=== PATIENT | female | born 1990 | race Caucasian/White ===

== ENCOUNTER → 2017-09-05 11:03 | Observation (INO) ==
[2017-09-05 08:52] LABS: Basophils # 0.1 K/mcL (0.0-0.2); Basophils % 0.6 %; Eosinophils # 0.1 K/mcL (0.0-0.6); Hematocrit 36.2 % (35.3-44.9); Hemoglobin 12.2 g/dL (11.5-15.4); Immature Granulocytes % 0.4 % (0-4); Lymphocytes # 1.4 K/mcL (0.6-4.6); Lymphocytes % 12.4 %; Mean Corpuscular HGB Conc 33.7 g/dL (31.6-35.5); Mean Platelet Volume 10.6 fL (9.4-12.4); Monocytes # 0.8 K/mcL (0.0-1.3); Monocytes % 7.4 %; Neutrophils # 8.5 K/mcL (1.6-8.9); Platelet Count 331 K/mcL (140-400); Red Blood Count 4.36 M/mcL (3.82-4.97); Red Cell Distribution Width 13.8 % (11.5-14.5); Segmented Neutrophils % 78.2 %
[2017-09-05 08:54] LABS: Bilirubin,Urine Negative (Negative); Blood,Urine Negative (Negative); Clarity,Urine Cloudy (Clear); Color,Urine Yellow (Yellow); Glucose,Urine (UA) Normal (Normal); Ketones,Urine Trace mg/dL (Negative); Leukocyte Esterase,Urine Negative (Negative); Nitrite,Urine Negative (Negative); PH,Urine 6.5 pH Units (5.0-8.0); Protein,Urine >=300 mg/dL (Neg-Trace); Specific Gravity,Urine 1.026 (1.010-1.025); Urobilinogen,Urine Normal (Normal)
[2017-09-05 08:56] LABS: Bacteria,Urine Few per hpf (None-Few); Hyaline Casts,Urine Few per lpf (None-Few); Squamous Epithelial Cell,Urine Many per lpf (None-Few); WBC,Urine 15-30 per hpf (0-3)
[2017-09-05 09:26] LABS: Alanine Aminotransferase 13 Units/L (7-52); Aspartate Amino Transferase 27 Units/L (13-39); BUN/Creatinine Ratio 14 (6-26); Blood Urea Nitrogen 7 mg/dL (6-20); Lactate Dehydrogenase 141 Units/L (140-271); Uric Acid 4.4 mg/dL (2.3-7.6); eGFR For African Americans > 60 (> 60); eGFR For Non-African Americans > 60 (> 60)
--- NOTE | 2017-09-05 09:40 | OB/GYN History & Physical ---
Date of Encounter: 09/05/17 Time of Encounter: 09:37 History of Present Illness HPI: Ms. Santoro is a 27 year old female Past Med Surg Social Fam HX - Past Medical History Medical history: diabetes, hypertension, myocardial infarction Psychiatric history: anxiety, depression, other - Social History Smoking Status: Never smoker Smokeless Tobacco Status: No Alcohol use: none Drug use: none - Family History Mother Living Status: Still Living Hx Family Cardiac Disorders: No Hx Family Respiratory Disorders: No Hx Family Cancer: No Hx Family GI Disorders: No Hx Family Genitourinary Disorders: No Hx Family Endocrine Disorder: No Hx Family Musculoskeletal Disorders: No Hx Family Neuromuscular Disorders: No Hx Family Neurologic Disorders: No Hx Family HEENT Disorders: No Hx Family Autoimmune Disorders: No Hx Family Reproductive Disorders: No Hx Family Psychosocial Disorders: No Hx Family Medical Disorders: No Obstetrical History - Pregnancies : 3 Medications and Allergies Acetaminophen [Tylenol] 500 mg PO Q6HR PRN #20 tablet 04/27/17 [Rx] Doxylamine/Pyridoxine HCl [Jorge Shi 10-10 mg Tablet] 1 each PO BID PRN #20 tablet.dr 06/09/17 [Rx] NIFEdipine XL (24 HR) [Procardia XL] 120 mg PO DAILY #30 tablet.er 06/21/17 [Rx] Aspirin 81 mg PO DAILY 09/05/17 [History] Insulin LISPRO [Humalog] 12 units SQ TID 09/05/17 [History] Insulin NPH Human Isophane [Humulin N Kwikpen] 40 units SQ BID 09/05/17 [History ] Metoprolol ER-Hctz 100-12.5 mg 100 mg PO DAILY 09/05/17 [History] 3 Allergy/AdvReac Type Severity Reaction Status Date / Time No Known Allergies Allergy Verified 09/05/17 08:26 Results Result Diagrams: 09/05/17 08:30 09/05/17 08:30 Abnormal lab results Creatinine 0.50 mg/dL (0.60-1.20) L 09/05/17 08:30 Urine Clarity Cloudy (Clear) A 09/05/17 08:30 Ur Specific [place] 1.026 (1.010-1.025) H 09/05/17 08:30 Urine Protein >=300 mg/dL (Neg-Trace) H 09/05/17 08:30 Urine Ketones Trace mg/dL (Negative) H 09/05/17 08:30 Urine Microscopic RBC 3-5 per hpf (0-3) H 09/05/17 08:30 Urine Microscopic WBC 15-30 per hpf (0-3) H 09/05/17 08:30 Ur Squamous Epith Cells Many per lpf (None-Few) H 09/05/17 08:30 All other labs normal. - VTE Reasons for not Prescribing Prophylaxis: Treatment not Indicated - Low risk for VTE
[2017-09-05 09:51] LABS: Amphetamine Screen,Urine Negative ng/mL (Cutoff=1000); Barbiturate Screen,Urine Negative ng/mL (Cutoff=200); Benzodiazepines Screen,Urine Negative ng/mL (Cutoff=200); Cannabinoid Screen,Urine Positive ng/mL (Cutoff = 50); Cocaine Screen,Urine Negative ng/mL (Cutoff= 300); Opiate Screen,Urine Negative ng/mL (Cutoff=300); Phencyclidine Screen,Urine Negative ng/mL (Cutoff=25)
--- NOTE | 2017-09-05 09:56 | OB/GYN History & Physical ---
Date of Encounter: 09/05/17 Time of Encounter: 09:51 Assessment and Plan (1) 28 weeks gestation of Current visit: Yes Status: Acute (2) Chronic hypertension affecting Current visit: Yes Status: Acute (3) Pre-eclampsia superimposed on chronic hypertension Current visit: Yes Status: Acute BP initially severe range in triage. Labetalol 20 IV has improved BP to mild range. PIH labs WNL except urine protein >300. UPCR pending. Pt did not take her home meds this am so we administered procardia and metoprolol here. ASA 81 mg per home regimen. Magnesium sulfate 4 gram load given. Magnesium sulfate 2 grams per hour following bolus. Celestone given in anticipation of delivery. Transfer to [facility] via ambulance. (4) IDDM (insulin dependent diabetes mellitus) Current visit: Yes Status: Acute Accucheck 203. Covered with 4 units. (5) History of GA (myocardial infarction) Current visit: Yes Status: Acute troponin negative (6) Marijuana use Current visit: Yes Status: Acute History of Present Illness Chief complaint: HTN HPI: Ms. Santoro is a 27 year old female presenting at 28w1d with c/o headache, visual changes, vomiting, and elevated blood pressure this am. This is complicated by CHTN, IDDM, and history of GA with subsequent stent placement in 2012. She reports she is on Procardia 120xl and metoprolol 100mg daily for her blood pressure. She usually takes in the morning around 8 but hasn't taken it this am due to vomiting. Her blood pressure has been elevated since she took it at 0400 this am at home. She also c/o shortness of breath with ambulation this am. She denies chest pain, contractions, leaking or bleeding. Good FM. Past Med Surg Social Fam HX - Past Medical History Medical history: diabetes, hypertension, myocardial infarction Psychiatric history: anxiety, depression, other - Social History Smoking Status: Never smoker Smokeless Tobacco Status: No Alcohol use: none Drug use: none - Family History Mother Living Status: Still Living Hx Family Cardiac Disorders: No Hx Family Respiratory Disorders: No Hx Family Cancer: No Hx Family GI Disorders: No Hx Family Genitourinary Disorders: No Hx Family Endocrine Disorder: No Hx Family Musculoskeletal Disorders: No Hx Family Neuromuscular Disorders: No Hx Family Neurologic Disorders: No Hx Family HEENT Disorders: No Hx Family Autoimmune Disorders: No Hx Family Reproductive Disorders: No Hx Family Psychosocial Disorders: No Hx Family Medical Disorders: No Obstetrical History - Pregnancies : 3 Para: 1 Term: 0 : 1 Ab's: 1 Livin - History/Complications History/Complications: First : twins at 30 weeks due to IUGR Second SAB at 16 weeks Medications and Allergies Acetaminophen [Tylenol] 500 mg PO Q6HR PRN #20 tablet 04/27/17 [Rx] Doxylamine/Pyridoxine HCl [Dicgerrys Dr 10-10 mg Tablet] 1 each PO BID PRN #20 tablet.dr 06/09/17 [Rx] NIFEdipine XL (24 HR) [Procardia XL] 120 mg PO DAILY #30 tablet.er 06/21/17 [Rx] Aspirin 81 mg PO DAILY 09/05/17 [History] Insulin LISPRO [Humalog] 12 units SQ TID 09/05/17 [History] Insulin NPH Human Isophane [Humulin N Kwikpen] 40 units SQ BID 09/05/17 [History ] Metoprolol ER-Hctz 100-12.5 mg 100 mg PO DAILY 09/05/17 [History] 3 Allergy/AdvReac Type Severity Reaction Status Date / Time No Known Allergies Allergy Verified 09/05/17 08:26 Review of System OB - Constitutional Constitutional ROS IM: headache(s), no fever(s) - Eyes Eyes: bilateral: blurred vision ("seeing spots") - Cardiovascular Cardiovascular: dyspnea on exertion, no chest pain, no diaphoresis, no dyspnea Exam - Constitutional Constitutional: well developed, well nourished, no acute distress, obese - HEENT HEENT: Mucus Membranes Moist - Lungs Respiratory exam: CTAB - Cardiovascular Cardiovascular exam: RRR - Abdomen Abdomen: Present: gravid, non tender - Extremities Extremities exam: pedal edema (mild bilaterally) Deep Tendon Reflex Grade: 2+ Normal Results Result Diagrams: 09/05/17 08:30 09/05/17 08:30 Abnormal lab results Creatinine 0.50 mg/dL (0.60-1.20) L 09/05/17 08:30 Urine Clarity Cloudy (Clear) A 09/05/17 08:30 Ur Specific [place] 1.026 (1.010-1.025) H 09/05/17 08:30 Urine Protein >=300 mg/dL (Neg-Trace) H 09/05/17 08:30 Urine Ketones Trace mg/dL (Negative) H 09/05/17 08:30 Urine Microscopic RBC 3-5 per hpf (0-3) H 09/05/17 08:30 Urine Microscopic WBC 15-30 per hpf (0-3) H 09/05/17 08:30 Ur Squamous Epith Cells Many per lpf (None-Few) H 09/05/17 08:30 U Marijuana (THC) Screen Positive ng/mL (Cutoff = 50) H 09/05/17 08:30 All other labs normal. - VTE Reasons for not Prescribing Prophylaxis: Treatment not Indicated - Low risk for VTE
[2017-09-05 10:04] LABS: Troponin I < 0.03 ng/mL (< 0.04)
[~2017-09-05 11:03] MED LIST: *HR* Labetalol 20 MG/4 ML SYRINGE IVP ONE; Acetaminophen 325 MG TABLET PO ONE; Aspirin Enteric Coated 81 MG Tablet PO SCH; Betamethasone Acet/SodPhos 6 MG/ML MDV IM SCH; Insulin LISPRO 300 UNITS/3 ML VIAL SQ ONE; Insulin Regular, Human 100 UNIT/ML SQ ONE; Magnesium Sulfate 20 gm/500mL 20 GM/500 ML IV.SOLN IVC SCH; Metoprolol XL (24 HR) Succ 50 MG TAB.ER.24H PO SCH; NIFEdipine XL (24 HR) 60 MG TAB.ER.24 PO SCH; Ringers Solution, Lactated 1,000 ML IVC SCH; Ringers Solution, Lactated 1,000 ML ONE
[2017-09-05 14:33] LABS: Protein/Creatinine Ratio,Urine 3.34 mg/mg (0.00-0.20)
== END | disposition short-term general hospital (02) ==
LOC: 1NENULAB
PROVIDERS: ADMIT Obstetrics & Gynecology; ATTEND Obstetrics & Gynecology

== ENCOUNTER 2018-03-18 20:38 | Inpatient (IN) ==
[2018-03-18] MEDS ORDERED: Ketorolac 15 MG/ML VIAL IVP ONE (20:49)
[2018-03-18] MEDS ORDERED: Metoclopramide 10 MG/2 ML VIAL IVP ONE (21:02)
--- NOTE | 2018-03-18 21:05 | Emergency Department Note ---
Disposition Clinical Impression: Elevated troponin Chest pain Qualifiers: Chest pain type: precordial pain Qualified Code(s): R07.2 - Precordial pain Disposition: Admitted As Inpatient Condition: Good Instructions: Chest Pain (ED) Referrals: NONE,PCP [Primary Care Provider] - Forms: ED Satisfaction Letter Time of Disposition: 22:32 General Adult HPI - General Chief complaint: ED Chest Pain Stated complaint: cp Time Seen by Provider: 03/18/18 20:49 Source: patient, EMS Mode of arrival: EMS Limitations: no limitations - History of Present Illness HPI Narrative: This is a 28-year-old female brought in by EMS because of chest pain that she states is midsternal and pain under her left breast with radiation to the left arm. She reports a history of myocardial infarction at age 22 and 2013 and states she had a stent placed in [facility]. She states episodes of pain have lasted from 1 second a 45 minutes in duration and have had a frequency of greater than 1 per hour for the last 4 days. She was seen here 2 days ago and had a negative ACS workup. Pain Scale: 4 - Related Data Home Medications Medication Instructions Recorded Confirmed Aspirin 81 mg PO DAILY 09/05/17 09/05/17 Insulin LISPRO [Humalog] 12 units SQ TID 09/05/17 09/05/17 Insulin NPH Human Isophane 40 units SQ BID 09/05/17 09/05/17 [Humulin N Kwikpen] Metoprolol ER-Hctz 100-12.5 mg 100 mg PO DAILY 09/05/17 09/05/17 Previous Rx's Medication Instructions Recorded Acetaminophen [Tylenol] 500 mg PO Q6HR PRN #20 tablet 04/27/17 Doxylamine/Pyridoxine HCl 1 each PO BID PRN #20 tablet.dr 06/09/17 [Jorge Shi 10-10 mg Tablet] NIFEdipine XL (24 HR) [Procardia 120 mg PO DAILY #30 tablet.er 06/21/17 XL] Allergies Allergy/AdvReac Type Severity Reaction Status Date / Time No Known Allergies Allergy Verified 03/16/18 09:45 All systems ED: reviewed and negative except as stated. Cardiovascular: Reports: chest pain Respiratory: Reports: dyspnea Past Medical History - Past Medical History Medical history: Reports: coronary artery disease, diabetes, hypertension, myocardial infarction Psychiatric history: Reports: anxiety, depression, other [employer] history: Reports: spontaneous - Social History Smoking Status: Never smoker Smokeless Tobacco Status: No Alcohol use: Reports: none Drug use: Reports: none Physical Exam - General Limitations: no limitations General appearance: alert, in distress (In moderate distress during episodes of pain), obese - Head Head exam: atraumatic, normocephalic, normal inspection - Eye Eye exam: Present: normal appearance, PERRL, EOMI. Absent: scleral icterus - Chest Chest inspection: Present: normal inspection, symmetric chest wall rise - Respiratory Respiratory exam: Present: normal lung sounds bilaterally. Absent: respiratory distress, wheezes, stridor, accessory muscle use - Cardiovascular Cardiovascular exam: Present: regular rate, normal rhythm, normal heart sounds - Abdominal Exam Abdominal exam: Present: soft, Non-Tender. Absent: tenderness, distention, guarding, rebound, rigidity - Extremities Exam Extremities exam: Present: normal inspection, full ROM, pedal edema (Nonpitting bilateral pedal edema). Absent: tenderness - Neurological Exam Neurological exam: Present: alert, oriented X3 - Psychiatric Psychiatric exam: Present: normal affect, normal mood - Skin Skin exam: Present: warm, dry, intact, normal color Course Course Narrative: This is a 28-year-old female with a reported history of coronary disease now with recurrent episodes of chest pain. Vital Signs Temperature 98.3 F 03/18/18 20:40 Pulse Rate 73 03/18/18 20:40 Respiratory Rate 16 03/18/18 20:40 Blood Pressure 182/118 03/18/18 20:40 O2 Sat by Pulse Oximetry 96 03/18/18 20:40 Temperature 98.3 F 03/18/18 20:40 Pulse Rate 95 03/18/18 22:26 Respiratory Rate 16 03/18/18 22:26 Blood Pressure 162/112 03/18/18 22:26 O2 Sat by Pulse Oximetry 97 03/18/18 22:26 Oxygen Delivery Oxygen Delivery Room Air Medical Decision Making - [facility] Narrative Medical decision making narrative: This is a 28-year-old female with chest pain. Chest pain was relieved by nitroglycerin, but her blood pressure remains elevated. Her troponin was very s lightly elevated 0.04. I discussed her case with the on-call hospitalist, who accepted her for admission. I agreed to give her 1 dose of labetalol because of hypertension. - Lab Data Lab results reviewed: Yes I reviewed the patient's lab results. Lab results narrative: CBC shows leukocytosis of 14.2 and thrombocytosis at 451 BMP was unremarkable D-dimer was low. Result diagrams: 03/18/18 20:59 03/18/18 20:59 Lab Results 03/18/18 03/18/18 03/18/18 Range/Units 20:49 20:59 20:59 WBC 14.2 H (4.3-11.1) K/mcL RBC 4.68 (3.82-4.97) M/mcL Hgb 13.0 (11.5-15.4) g/dL Hct 38.5 (35.3-44.9) % MCV 82.3 L (83.0-100.0) fL MCH 27.8 L (28.0-33.3) pg MCHC 33.8 (31.6-35.5) g/dL RDW 13.7 (11.5-14.5) % Plt Count 451 H (140-400) K/mcL MPV 9.9 (9.4-12.4) fL Immature Gran % 0.4 (0-4) % Seg Neutrophils % 60.8 % Lymphocytes % 27.4 % Monocytes % 6.5 % Eosinophils % 4.3 % Basophils % 0.6 % Neutrophils # 8.6 (1.6-8.9) K/mcL Lymphocytes # 3.9 (0.6-4.6) K/mcL Monocytes # 0.9 (0.0-1.3) K/mcL Eosinophils # 0.6 (0.0-0.6) K/mcL Basophils # 0.1 (0.0-0.2) K/mcL D-Dimer 309 (0-500) ng/mLFEU Sodium 134 L (136-145) mEq/L Potassium 4.3 (3.5-5.1) mEq/L Chloride 99 (98-107) mEq/L Carbon Dioxide 23 (23-29) mEq/L BUN 15 (6-20) mg/dL Creatinine 0.68 (0.60-1.20) mg/dL Est GFR ( Amer) > 60 (> 60) Est GFR (Non-Af Amer) > 60 (> 60) BUN/Creatinine Ratio 22 (6-26) Glucose 255 H (70-105) mg/dL Calculated Osmolality 288 (280-300) Calcium 9.3 (8.6-10.3) mg/dL Troponin I 0.04 H* (< 0.04) ng/mL - Radiology Data Radiology results reviewed: Yes I reviewed the patient's radiology results. Chest x-ray showed no acute process - EKG Data EKG #1 EKG attestation: Yes I reviewed and interpreted this EKG. EKG results narrative: ECG shows sinus rhythm, 71 bpm, slight ST depressions in leads 3 and aVF, normal T waves, normal intervals, normal axis Critical Care Time Critical Care Time: Yes Total Critical Care Time: 20 Attestation: 20 minutes of critical care time was invested independent of other separately billable procedures
[2018-03-18] MEDS ORDERED: Nitroglycerin 0.4 MG TAB.SUBL SL ONE (21:06)
[2018-03-18] MEDS: Nitroglycerin 0.4 MG TAB.SUBL SL PRN ×2 (21:08→22:22)
[2018-03-18 21:28] LABS: Basophils # 0.1 K/mcL (0.0-0.2); Basophils % 0.6 %; Eosinophils # 0.6 K/mcL (0.0-0.6); Eosinophils % 4.3 %; Hematocrit 38.5 % (35.3-44.9); Immature Granulocytes % 0.4 % (0-4); Lymphocytes # 3.9 K/mcL (0.6-4.6); Lymphocytes % 27.4 %; Mean Corpuscular HGB Conc 33.8 g/dL (31.6-35.5); Mean Corpuscular Hemoglobin 27.8 pg (28.0-33.3); Mean Corpuscular Volume 82.3 fL (83.0-100.0); Mean Platelet Volume 9.9 fL (9.4-12.4); Monocytes # 0.9 K/mcL (0.0-1.3); Monocytes % 6.5 %; Neutrophils # 8.6 K/mcL (1.6-8.9); Platelet Count 451 K/mcL (140-400); Red Blood Count 4.68 M/mcL (3.82-4.97); Red Cell Distribution Width 13.7 % (11.5-14.5); Segmented Neutrophils % 60.8 %
[2018-03-18 21:47] LABS: BUN/Creatinine Ratio 22 (6-26); Blood Urea Nitrogen 15 mg/dL (6-20); Calcium 9.3 mg/dL (8.6-10.3); Carbon Dioxide 23 mEq/L (23-29); Chloride 99 mEq/L (98-107); Glucose 255 mg/dL (70-105); Osmolality,Calculated 288 (280-300); Potassium 4.3 mEq/L (3.5-5.1); Sodium 134 mEq/L (136-145); eGFR For Non-African Americans > 60 (> 60)
[2018-03-18 22:06] LABS: Troponin I 0.04 ng/mL (< 0.04)
[2018-03-18] MEDS ORDERED: *HR* FentaNYL (PF) 100 MCG/2 ML VIAL IVP ONE (22:11)
[2018-03-18] MEDS ORDERED: NIFEdipine 10 MG CAPSULE PO ONE (22:29)
[2018-03-18] MEDS ORDERED: *HR* Labetalol 20 MG/4 ML SYRINGE IVP ONE (22:30)
[2018-03-18] MEDS ORDERED: Ondansetron 4 MG/2 ML VIAL IVP ONE (23:08)
[2018-03-18] MEDS ORDERED: Ondansetron 4 MG/2 ML VIAL ONE (23:08)
[2018-03-18] MEDS ORDERED: Naloxone 0.4 MG/ML INJ IVP PRN (23:18)
[2018-03-19] MEDS: Nitroglycerin 0.4 MG TAB.SUBL SL PRN (00:22)
[2018-03-19] MEDS: 0.9 % Sodium Chloride 1,000 ML IVC SCH ×2 (00:23→10:16)
[2018-03-19] MEDS: *HR* Heparin 5,000 UNIT/ML VIAL SQ SCH ×2 (00:26→05:05)
[2018-03-19] MEDS ORDERED: *HR* Morphine 2 MG/ML SYRINGE IVP ONE (00:31)
[2018-03-19] MEDS ORDERED: D5% in Water 1,000 ML IVC PRN (01:20)
[2018-03-19] MEDS ORDERED: Dextrose Gel 15 GM/37.5 ML TUBE PO PRN ×2 (01:20)
[2018-03-19] MEDS ORDERED: *HR* Dextrose 50 % in Water (Syg) 50 ML SYRINGE IVP PRN (01:20)
[2018-03-19] MEDS: Insulin LISPRO 300 UNITS/3 ML VIAL SQ SCH ×4 (02:07→21:21)
[2018-03-19 05:05] LABS: Basophils # 0.1 K/mcL (0.0-0.2); Basophils % 0.4 %; Eosinophils # 0.2 K/mcL (0.0-0.6); Eosinophils % 1.6 %; Hematocrit 37.6 % (35.3-44.9); Hemoglobin 12.7 g/dL (11.5-15.4); Immature Granulocytes % 0.5 % (0-4); Lymphocytes # 2.9 K/mcL (0.6-4.6); Lymphocytes % 22.3 %; Mean Corpuscular HGB Conc 33.8 g/dL (31.6-35.5); Mean Corpuscular Hemoglobin 27.5 pg (28.0-33.3); Mean Corpuscular Volume 81.4 fL (83.0-100.0); Mean Platelet Volume 9.4 fL (9.4-12.4); Monocytes # 0.5 K/mcL (0.0-1.3); Monocytes % 4.1 %; Neutrophils # 9.3 K/mcL (1.6-8.9); Platelet Count 395 K/mcL (140-400); Red Blood Count 4.62 M/mcL (3.82-4.97); Red Cell Distribution Width 13.5 % (11.5-14.5); Segmented Neutrophils % 71.1 %
[2018-03-19 05:24] LABS: Alanine Aminotransferase 14 Units/L (7-52); Albumin 3.9 g/dL (3.5-5.7); Alkaline Phosphatase 68 Units/L (34-104); Aspartate Amino Transferase 12 Units/L (13-39); BUN/Creatinine Ratio 22 (6-26); Bilirubin,Total 0.3 mg/dL (0.3-1.0); Blood Urea Nitrogen 13 mg/dL (6-20); Calcium 9.1 mg/dL (8.6-10.3); Carbon Dioxide 24 mEq/L (23-29); Chloride 100 mEq/L (98-107); Glucose 298 mg/dL (70-105); Magnesium 1.6 mg/dL (1.6-2.6); Osmolality,Calculated 289 (280-300); Potassium 3.9 mEq/L (3.5-5.1); Sodium 134 mEq/L (136-145); Total Protein 6.7 g/dL (6.4-8.9); eGFR For Non-African Americans > 60 (> 60)
[2018-03-19 05:25] LABS: Albumin/Globulin Ratio 1.4 (1.1-2.2); Globulin 2.8 g/dL (2.4-3.5)
[2018-03-19 05:32] LABS: Troponin I 0.27 ng/mL (< 0.04)
[2018-03-19] MEDS ORDERED: *HR* Heparin 5,000 UNIT/ML VIAL IVP ONE (05:58)
[2018-03-19] MEDS ORDERED: *HR* Heparin 5,000 UNIT/ML VIAL IVP PRN ×2 (05:58)
[2018-03-19] MEDS ORDERED: Heparin 25,000 UNIT/500 ML D5W 25,000 UNIT/500 ML BAG IVC SCH ×2 (06:00)
[2018-03-19 06:38] LABS: Heparin anti-factor XA UFH 0.05 IU/mL (0.30-0.70); Prothrombin Time 11.3 Seconds (9.4-12.1)
--- NOTE | 2018-03-19 07:42 | Internal Med History&Physical ---
Date of Encounter: 03/19/18 Time of Encounter: 03:00 Internal Medicine - H&P: HPI Chief complaint: Chest Pain History of present illness: This is a 28-year-old female with a past medical history type 2 diabetes, hypertension, hyperlipidemia and myocardial infarction at age 22 and 2013 status post PCI in [facility] brought in by EMS because of chest pain. Pain described as midsternal , sharp with radiation to the left arm. She states episodes of pain have lasted from 1 second a 45 minutes in duration and have had a frequency of greater than 1 per hour for the last 4 days. Patient presented 2 days ago with similar symptoms and had a negative ACS workup. Initial laboratory workup was notable for a mildly elevated troponin of 0.04. No significant EKG changes were noted when compared to previous EKG. was noted to be hypertensive of 182/118. Patient received sublingual nitroglycerin in the ED with mild improvement in her chest pain. She was given a loading dose of aspirin and admitted for further evaluation. Past Med Surg Social Fam HX - Past Medical History Medical history: coronary artery disease, diabetes, hypertension, myocardial infarction Additional medical history: borderline personality disorder Psychiatric history: anxiety, depression, other - Past Surgical History Additional surgical history: ACL repair 2006. [place] teeth 2005. Carpel tunnel 2008. D&C 2010. tubal - Social History Smoking Status: Never smoker Smokeless Tobacco Status: No Alcohol use: none Drug use: none - Family History Mother Living Status: Still Living Hx Family Cardiac Disorders: No Hx Family Respiratory Disorders: No Hx Family Cancer: No Hx Family GI Disorders: No Hx Family Endocrine Disorder: No Hx Family Neuromuscular Disorders: No Hx Family Neurologic Disorders: No Hx Family HEENT Disorders: No Hx Family Autoimmune Disorders: No Internal Medicine - H&P: Meds Aspirin 81 mg PO DAILY 03/18/18 [History] Atorvastatin [Lipitor] 40 mg PO HS 03/18/18 [History] BuPROPion XL (24 HR) [Wellbutrin XL] 150 mg PO DAILY 03/18/18 [History] Carvedilol [Coreg] 25 mg PO BID 03/18/18 [History] Chlorthalidone 25 mg PO BID 03/18/18 [History] Cyclobenzaprine [Flexeril] 10 mg PO HS PRN 03/18/18 [History] DULoxetine [Cymbalta] 30 mg PO DAILY 03/18/18 [History] Enalapril Maleate [Vasotec] 10 mg PO DAILY 03/18/18 [History] Insulin Degludec [Tresiba Flextouch U-200] 40 unit SQ BID 03/18/18 [History] Metformin HCl 1,000 mg PO DAILY 03/18/18 [History] Allergy/AdvReac Type Severity Reaction Status Date / Time No Known Allergies Allergy Verified 03/16/18 09:45 All Systems PM: A 10-system review of systems was performed and is negative for pertinent findings except as documented above in the HPI. - Constitutional Constitutional: no chills, no fever(s), no night sweats - EENT Eyes: no change in vision, no discharge, no pain, no photophobia Ears: no ear discharge, no ear pain, no tinnitus Nose, mouth and throat: no dysphagia, no nasal discharge, no neck pain, no sore throat - Cardiovascular Cardiovascular ROS IM: no chest pain, no diaphoresis, no dyspnea, no lightheadedness, no palpitations, no syncope - Respiratory Respiratory: no cough, no dyspnea, no wheezing, no excessive phlegm production - Gastrointestinal Gastrointestinal: no abdominal pain, no diarrhea, no hematemesis, no hematochezia, no melena, no nausea, no vomiting - Genitourinary Genitourinary: no change in urinary stream, no dysuria, no flank pain, no hematuria - Musculoskeletal Musculoskeletal ROS IM: no numbness, no tingling - Integumentary Integumentary IM: no rash, no unusual bruising - Neurological Neurological ROS: no confusion, no convulsions, no focal weakness, no numbness, no tingling, no tremor(s) - Hematologic/Lymphatic Hematologic/Lymphatic: no easy bruising - Constitutional Vitals: Temp Pulse Resp BP Pulse Ox 97.6 F 78 18 162/111 95 03/19/18 07:23 03/19/18 07:23 03/19/18 07:23 03/19/18 07:23 03/19/18 07:23 Exam: General: Alert and oriented 3 Skin:Normal color, no rash, no lesions. HEENT:EOM, pupils equal, round and reactive. Cardiovascular:Normal S1 & S2, no rubs, murmurs or gallops. No JVD. Pulse regular. Lungs:Normal breath sounds, no wheezes or crackles. Abdomen:Soft, non-tender, no rigidity. Extremities:No deformity, no edema or tenderness, no joint swelling or clubbing. Neurological:Normal cognition and motor skills. Pulses:Carotid and radial pulses normal +2. Rest of the physical exam is non contributory Internal Med - H&P Results - Labs CBC & Chem 7: 03/19/18 04:18 03/19/18 04:18 Labs: Short CBC 03/18/18 03/19/18 Range/Units 20:59 04:18 WBC 14.2 H 13.0 H (4.3-11.1) K/mcL Hgb 13.0 12.7 (11.5-15.4) g/dL Hct 38.5 37.6 (35.3-44.9) % Plt Count 451 H 395 (140-400) K/mcL Neutrophils # 8.6 9.3 H (1.6-8.9) K/mcL BMP 03/18/18 03/19/18 20:59 04:18 Sodium 134 L 134 L Potassium 4.3 3.9 Chloride 99 100 Carbon Dioxide 23 24 BUN 15 13 Creatinine 0.68 0.60 Glucose 255 H 298 H Calcium 9.3 9.1 Cardiac Enzymes 03/18/18 03/19/18 Range/Units 20:59 04:18 Troponin I 0.04 H* 0.27 H* (< 0.04) ng/mL Liver Function 03/19/18 Range/Units 04:18 Total Bilirubin 0.3 (0.3-1.0) mg/dL AST 12 L (13-39) Units/L ALT 14 (7-52) Units/L Alkaline Phosphatase 68 (34-104) Units/L Albumin 3.9 (3.5-5.7) g/dL - Impressions ITS Impressions Chest X-Ray 03/18/18 20:49 IMPRESSION: No acute process. D/ / Joe Cruz MD / Joe Cruz MD Interpreting Provider: Joe Cruz MD - Assessment and plan (1) Chest pain Current Visit: Yes Status: Acute Assessment and plan: Atypical chest pain in the setting of a young female with previously diagnosed coronary artery disease status post PCI in 2013. Patient states chest pain is similar to previous episode but is more severe. Initial troponin was 0.04. No significant EKG changes were noted when compared to previous EKG. Elevated troponin may be due to demand ischemia in the setting of her elevated blood pressure. She received loading dose of aspirin in the ED. patient is currently on a home beta angelo, LISY inhibitor and statin. Continue telemetry Trend troponin. If troponin begins trending upward we will consider starting patient on heparin drip Echocardiogram Cardiology consult Qualifiers: Chest pain type: precordial pain Qualified Code(s): R07.2 - Precordial pain (2) Elevated troponin Current Visit: Yes Status: Acute Assessment and plan: Elevated troponin of 0.04. We will trend. (3) Coronary artery disease Current Visit: Yes Status: Acute Assessment and plan: History of coronary artery disease status post PCI. Continue patient's beta angelo, statin and LISY inhibitor. Qualifiers: Associated angina: angina presence unspecified Qualified Code(s): I25.10 - Atherosclerotic heart disease of [place] coronary artery without angina pectoris (4) Type 2 diabetes mellitus Current Visit: Yes Status: Acute Assessment and plan: Blood glucose checks. We will put patient on sliding scale insulin. Qualifiers: Qualified Code(s): E11.9 - Type 2 diabetes mellitus without complications (5) DVT prophylaxis Current Visit: Yes Status: Acute Assessment and plan: We will put patient on subcutaneous heparin for now. - Time Spent With Patient Total time spent is greater than 50% in coordination of care (as documented) at patient's floor/unit and/or counseling patient:
[2018-03-19] MEDS: Aspirin 81 MG TAB.CHEW PO SCH (08:05)
--- NOTE | 2018-03-19 10:21 | Cardiology Consult Note ---
<Geovany Crowe Marcy - Last Filed: 03/19/18 10:22> Date of Encounter: 03/19/18 Time of Encounter: 09:45 Assessment and Plan (1) Elevated troponin Current Visit: Yes Status: Acute Troponin elevation up to 0.04, 0.27 in young female with history of HI and PCI in 2013. Reports typical chest pain symptoms. Noted elevated b/p this admit. Here two d ays ago with chest pain and normal b/p. No recent cardiac work-up. Check TTE. [facility] recommended for further evaluation. R/B/A of [facility] discussed and she agrees to proceed. (2) Coronary artery disease Current Visit: Yes Status: Acute H/o PCI in 2013 at [facility]. Asa, statin, and bb. Qualifiers: Coronary Disease-Associated Artery/Lesion type: [place] artery [place] vs. t ransplanted heart: [place] heart Associated angina: without angina Qualified Code(s): I25.10 - Atherosclerotic heart disease of [place] coronary artery without angina pectoris (3) Essential hypertension Current Visit: Yes Status: Acute Uncontrolled HTN. Noted that she is on vasotec at home and not receiving here due to hospital not carrying medication. Add Norvasc. Discussion w patient/family: The assessment and plan as outlined above was discussed with the patient and/or family members who expressed understanding and agreement. All questions were answered. Thank you for involving us in the care of your patient. Please call with any questions. History of Present Illness Consult date: 03/19/18 Consult reason: NSTEMI Chief complaint: Chest pain History of present illness: Ms. Santoro is a 28 year old female with past medical history significant for DM type II, bipolar disorder, HTN, HLD, and HI in 2013 s/p PCI. She presents with intermittent chest pain for the past three days. Chest pain increases with exertion and is relieved with rest. She was seen in the ED two days prior with chest pain and sent home after work-up negative. This admission her troponin was found to be elevated. She states that she does not remember her prior HI. SHe has not followed with cardiology or had any problems since that time. SHe was noted to have elevated b/p on admission. States that she was recently seen by her PCP with normal blood pressure at that time. Past Med Surg Social Fam HX - Past Medical History Medical history: coronary artery disease, diabetes, hypertension, myocardial infarction Additional medical history: borderline personality disorder Psychiatric history: anxiety, depression, other - Past Surgical History Additional surgical history: ACL repair 2005. [place] teeth 2005. Carpel tunnel 2008. D&C 2009. tubal - Social History Smoking Status: Never smoker Smokeless Tobacco Status: No Alcohol use: none Drug use: none - Family History Mother Living Status: Still Living Hx Family Cardiac Disorders: No Hx Family Respiratory Disorders: No Hx Family Cancer: No Hx Family GI Disorders: No Hx Family Endocrine Disorder: No Hx Family Neuromuscular Disorders: No Hx Family Neurologic Disorders: No Hx Family HEENT Disorders: No Hx Family Autoimmune Disorders: No Medications and Allergies Aspirin 81 mg PO DAILY 03/18/18 [History] Atorvastatin [Lipitor] 40 mg PO HS 03/18/18 [History] BuPROPion XL (24 HR) [Wellbutrin XL] 150 mg PO DAILY 03/18/18 [History] Chlorthalidone 25 mg PO BID 03/18/18 [History] Cyclobenzaprine [Flexeril] 10 mg PO HS PRN 03/18/18 [History] Enalapril Maleate [Vasotec] 10 mg PO DAILY 03/18/18 [History] Metformin HCl 1,000 mg PO DAILY 03/18/18 [History] RX: Carvedilol [Coreg] 25 mg PO BID 03/18/18 [History] RX: DULoxetine [Cymbalta] 30 mg PO DAILY 03/18/18 [History] RX: Insulin Degludec [Tresiba Flextouch U-200] 40 unit SQ BID 03/18/18 [History] Allergy/AdvReac Type Severity Reaction Status Date / Time No Known Allergies Allergy Verified 03/16/18 09:45 All Systems Review: The remainder of the systems were reviewed and are negative Physical Examination Vital Signs, Last 4 Hours Temp Pulse Resp BP Pulse Ox 03/19/18 07:23 97.6 F 78 18 162/111 95 General: Conversant, No Apparent Distress HEENT: Atraumatic, Normocephaly, Mucus Membranes Moist Neck: No JVD, Normal carotid pulses Cardiac: Reg Rate and Rhythm, Normal S1 and S2, No Murmur Lungs: Normal Breath Sounds, No Wheeze, Rales, Rhonchi Neuro: Alert and responsive, No focal deficits noted Abdomen: Soft, Non-Tender Skin: No rashes noted on visualized skin Musculoskeletal: No Chest Wall Tenderness Extremities: No Clubbing, No Cyanosis, No Edema, Normal Pulses Results 03/19/18 04:18 03/19/18 04:18 Lab Results 03/18/18 03/18/18 03/18/18 20:49 20:59 20:59 WBC 14.2 H Hgb 13.0 Hct 38.5 Plt Count 451 H INR D-Dimer 309 Sodium 134 L Potassium 4.3 Chloride 99 Carbon Dioxide 23 BUN 15 Creatinine 0.68 Glucose 255 H Calcium 9.3 Magnesium Total Bilirubin AST ALT Alkaline Phosphatase Troponin I 0.04 H* 03/19/18 03/19/18 03/19/18 04:18 04:18 06:05 WBC 13.0 H Hgb 12.7 Hct 37.6 Plt Count 395 INR 1.0 D-Dimer Sodium 134 L Potassium 3.9 Chloride 100 Carbon Dioxide 24 BUN 13 Creatinine 0.60 Glucose 298 H Calcium 9.1 Magnesium 1.6 Total Bilirubin 0.3 AST 12 L ALT 14 Alkaline Phosphatase 68 Troponin I 0.27 H* - Imaging and Cardiology Echo: pending - EKG Interpretation EKG results cardiology: personally reviewed Consult Discharge Plan - Plan Referrals: NONE,PCP [Primary Care Provider] - <Mag Forte - Last Filed: 03/19/18 17:23> - Attending Attestation Patient was seen and evaluated independently by me. Findings, assessment and plan were discussed at length with patient, questions answered. Agree with nurse practitioner's/resident's documentation. Addition as follows, 28 yo CF ho CAD PCI 2012, DM, HTN, HLD, bipolar. P/w recurrent exertional cp 4 days, cp at rest 1 day with uncontrolled hypertension. ECG concern for Wellen sign. Trop peak 0.6 Cr wnl, no bleeding, no surgery plan Utox THC+ A: NSTEMI HTN P: LHC, NPO c/w ASA, heparin drip pending echo Mag Forte MD, PhD Assessment and Plan Discussion w patient/family: The assessment and plan as outlined above was discussed with the patient and/or family members who expressed understanding and agreement. All questions were answered. Thank you for involving us in the care of your patient. Please call with any questions. History of Present Illness History of present illness: Ms. Santoro is a 28 year old female All Systems Review: The remainder of the systems were reviewed and are negative Results 03/19/18 04:18 03/19/18 04:18 Lab Results 03/18/18 03/18/18 03/18/18 20:49 20:59 20:59 WBC 14.2 H Hgb 13.0 Hct 38.5 Plt Count 451 H INR D-Dimer 309 Sodium 134 L Potassium 4.3 Chloride 99 Carbon Dioxide 23 BUN 15 Creatinine 0.68 Glucose 255 H Calcium 9.3 Magnesium Total Bilirubin AST ALT Alkaline Phosphatase Troponin I 0.04 H* 03/19/18 03/19/18 03/19/18 04:18 04:18 06:05 WBC 13.0 H Hgb 12.7 Hct 37.6 Plt Count 395 INR 1.0 D-Dimer Sodium 134 L Potassium 3.9 Chloride 100 Carbon Dioxide 24 BUN 13 Creatinine 0.60 Glucose 298 H Calcium 9.1 Magnesium 1.6 Total Bilirubin 0.3 AST 12 L ALT 14 Alkaline Phosphatase 68 Troponin I 0.27 H* 03/19/18 09:27 WBC Hgb Hct Plt Count INR D-Dimer Sodium Potassium Chloride Carbon Dioxide BUN Creatinine Glucose Calcium Magnesium Total Bilirubin AST ALT Alkaline Phosphatase Troponin I 0.60 H*
--- NOTE | 2018-03-19 10:39 | Internal Med Progress Note ---
Hospitalist Progress Note - Encounter Date of Encounter: 03/19/18 Time of Encounter: 08:30 - Subjective Interval History: Ms. Santoro is a 28-year-old female with a past medical history type 2 diabetes, hypertension, hyperlipidemia and myocardial infarction at age 22 with status post PCI at [facility] presented to ER with chest pain. Pain described as midsternal , sharp with radiation to the left arm. She has been having exertional chest pain from last 4 days. Patient presented 2 days ago with similar symptoms and had a negative ACS workup. Initial laboratory workup was notable for a mildly elevated troponin of 0.04. No significant EKG changes were noted when compared to previous EKG. However her 2nd troponin went up to 0.6 Pt denied any active CP now. - Exam Vitals: Temp Pulse Resp BP Pulse Ox 97.6 F 78 18 162/111 95 03/19/18 07:23 03/19/18 07:23 03/19/18 07:23 03/19/18 07:23 03/19/18 07:23 Exam: Gen: Alert, awake, Oriented to time,place and person Chest: Diminished breath sounds B/L, No wheezing, No crackles, No rales Heart: S1S2+ RRR No murmurs Abd: Soft, NT, BS +, No organomegaly Ext: No edema, pulses are palpable, No calf tenderness Neuro : Benign findings Skin: No rash. - Assessment and Plan (1) Chest pain Current Visit: Yes Status: Acute Assessment and Plan: Trop peaked at 0.6, now trending down May need [facility] Will talk to Card cont on tele trend on trop on Heparin gtt cont ASA + BB + Statin (2) Elevated troponin Current Visit: Yes Status: Acute Assessment and Plan: most likely ischemic CAD see above (3) Coronary artery disease Current Visit: Yes Status: Acute Assessment and Plan: History of coronary artery disease status post PCI. Continue patient's beta angelo, statin and LISY inhibitor. (4) Type 2 diabetes mellitus Current Visit: Yes Status: Acute Assessment and Plan: ADA diet on ISS (5) DVT prophylaxis Current Visit: Yes Status: Acute Assessment and Plan: on heparin gtt - Time Spent with Patient Total time spent is greater than 50% in coordination of care (as documented) at patient's floor/unit and/or counseling patient: Internal Medicine: Result - Labs CBC & Chem 7: 03/19/18 04:18 03/19/18 04:18 Labs: Short CBC 03/18/18 03/19/18 Range/Units 20:59 04:18 WBC 14.2 H 13.0 H (4.3-11.1) K/mcL Hgb 13.0 12.7 (11.5-15.4) g/dL Hct 38.5 37.6 (35.3-44.9) % Plt Count 451 H 395 (140-400) K/mcL Neutrophils # 8.6 9.3 H (1.6-8.9) K/mcL BMP 03/18/18 03/19/18 20:59 04:18 Sodium 134 L 134 L Potassium 4.3 3.9 Chloride 99 100 Carbon Dioxide 23 24 BUN 15 13 Creatinine 0.68 0.60 Glucose 255 H 298 H Calcium 9.3 9.1 Cardiac Enzymes 03/18/18 03/19/18 03/19/18 Range/Units 20:59 04:18 09:27 Troponin I 0.04 H* 0.27 H* 0.60 H* (< 0.04) ng/mL Liver Function 03/19/18 Range/Units 04:18 Total Bilirubin 0.3 (0.3-1.0) mg/dL AST 12 L (13-39) Units/L ALT 14 (7-52) Units/L Alkaline Phosphatase 68 (34-104) Units/L Albumin 3.9 (3.5-5.7) g/dL - ABG Interpretation ABG results: PT/INR, D-dimer PT 11.3 Seconds (9.4-12.1) 03/19/18 06:05 D-Dimer 309 ng/mLFEU (0-500) 03/18/18 20:49 - Impressions Impressions Chest X-Ray 03/18/18 20:49 IMPRESSION: No acute process. D/ / Joe Cruz MD / Joe Cruz MD Interpreting Provider: Joe Cruz MD Consult Discharge Plan - Plan Referrals: NONE,PCP [Primary Care Provider] - (1) Chest pain Qualifiers: Chest pain type: precordial pain Qualified Code(s): R07.2 - Precordial pain (3) Coronary artery disease Qualifiers: Coronary Disease-Associated Artery/Lesion type: [place] artery [place] vs. transplanted heart: [place] heart Associated angina: without angina Qualified Code(s): I25.10 - Atherosclerotic heart disease of [place] coronary artery withou t angina pectoris (4) Type 2 diabetes mellitus Qualifiers: Qualified Code(s): E11.9 - Type 2 diabetes mellitus without complications
[2018-03-19] MEDS: Acetaminophen 325 MG TABLET PO PRN ×2 (11:00→17:10)
[2018-03-19] MEDS ORDERED: 0.9 % Sodium Chloride 1,000 ML ONE ×2 (11:01→11:09)
[2018-03-19] MEDS ORDERED: *HR* Heparin 10,000 UNIT/10 ML VIAL ONE (11:01)
[2018-03-19] MEDS ORDERED: Heparin 1,000 UNITS/500 mL 500 ML ONE (11:01)
[2018-03-19] MEDS ORDERED: Nitroglycerin 1,000 MCG/10 ML VIAL IV ONE (11:02)
[2018-03-19] MEDS ORDERED: ISOVUE-370 200 ML INFUS..BTL ONE ×2 (11:02→12:24)
[2018-03-19] MEDS: amLODIPine 5 MG TABLET PO SCH ×3 (11:04→21:05)
[2018-03-19] MEDS: Lisinopril 20 MG TABLET PO SCH ×2 (11:04→14:04)
--- NOTE | 2018-03-19 11:18 | Pre-Sedation Evaluation ---
Pre-sedation evaluation - Pre-sedation checklist Date of procedure: 03/19/18 Procedure: left heart catheterization Recent Vitals: Last Vital Signs Temp 97.6 F 03/19/18 07:23 Pulse 78 03/19/18 07:23 Resp 18 03/19/18 07:23 BP 162/111 03/19/18 07:23 Pulse Ox 95 03/19/18 07:23 H&P (including ROS) documented in medical record: Yes Previous reaction to sedatives/anesthetics: No Dietary Status: NPO after Midnight Airway Assessment: Patient can open mouth completely, TMJ function normal, Micrognathia (under-bite, receding chin) absent, Neck with adequate range of motion Dentition: No loose teeth or bridges Possible difficult airway: Yes If Yes;: Morbid obesity ASA Classification *see protocol: CLASS II-Mild systemic disease Plan of Care: Pt appropriate candidate for procedure/moderate/conscious sedation, Risks/benefits of procedure/sedation discussed w/ patient/family Cardiac Registry (Cardio Only) - Functional Capacity Functional Capacity: < 4 METS - Clincal Frailty Scale Clinical Frailty Scale: Vulnerable
[2018-03-19 11:27] LABS: Amphetamine Screen,Urine Negative ng/mL (Cutoff=1000); Barbiturate Screen,Urine Negative ng/mL (Cutoff=200); Benzodiazepines Screen,Urine Negative ng/mL (Cutoff=200); Cannabinoid Screen,Urine Positive ng/mL (Cutoff = 50); Cocaine Screen,Urine Negative ng/mL (Cutoff= 300); Opiate Screen,Urine Negative ng/mL (Cutoff=300); Phencyclidine Screen,Urine Negative ng/mL (Cutoff=25)
[2018-03-19] MEDS ORDERED: *HR* FentaNYL (PF) 100 MCG/2 ML VIAL ONE ×2 (11:33→12:11)
[2018-03-19] MEDS ORDERED: *HR* Midazolam HCl 2 MG/2 ML VIAL ONE ×3 (11:34→12:11)
[2018-03-19] MEDS ORDERED: *HR* Bivalirudin 250 MG VIAL IVC ONE ×2 (11:54→12:23)
[2018-03-19] MEDS ORDERED: Nitroglycerin 25 MG/250 ML INFUS..BTL IVC ONE (11:57)
[2018-03-19] MEDS ORDERED: *HR* Ticagrelor 90 MG TABLET ONE (12:28)
[2018-03-19] MEDS: *HR* Morphine 2 MG/ML SYRINGE IVP PRN ×3 (12:59→21:06)
[2018-03-19] MEDS ORDERED: 0.9 % Sodium Chloride 1,000 ML IVC SCH (13:00)
[2018-03-19] MEDS: Ondansetron 4 MG/2 ML VIAL IVP PRN ×2 (13:15→19:58)
[2018-03-19] MEDS ORDERED: niCARdipine 20 MG/200 ML MLS IVC ONE (16:39)
--- NOTE | 2018-03-19 17:29 | Event Note ---
Date of Encounter: 03/19/18 Time of Encounter: 17:00 - Cardiology Event Note Persistently hypertensive despite high dose of sedation, pain ctr and po/IV anti-HTN meds. started nicardipine drip and titrate for BP 130-140/70-90.
[2018-03-19] MEDS ORDERED: Perflutren Lipid Microsphere 1.3 ML in 0.9 % Sodium Chloride 8.7 ML IVP ONE (19:53)
[2018-03-19] MEDS: niCARdipine 40 MG/200 ML MLS IVC SCH (19:59)
[2018-03-20] MEDS: niCARdipine 40 MG/200 ML MLS IVC SCH (01:21)
[2018-03-20] MEDS: Insulin LISPRO 300 UNITS/3 ML VIAL SQ SCH ×3 (02:59→08:05)
[2018-03-20] MEDS: amLODIPine 5 MG TABLET PO SCH (07:51)
[2018-03-20] MEDS: Lisinopril 20 MG TABLET PO SCH (07:52)
[2018-03-20] MEDS: Aspirin 81 MG TAB.CHEW PO SCH (07:52)
--- NOTE | 2018-03-20 10:09 | Cardiology Progress Note ---
Date of Encounter: 03/20/18 Time of Encounter: 10:07 Assessment and Plan (1) NSTEMI (non-ST elevated myocardial infarction) Current Visit: Yes Status: Acute Troponin elevation up to 0.04, 0.27, 0.80 in young female with history of [place] and PCI in 2013. LHC completed and patient received PTCA and PCI to the pOM and SHAIL[facility] mLAD. There was mild non-obstructive CAD remaining. EF 45% TTE showed EF 45%. No significant valvular disease. Importance of asa and plavix uninterrupted for minimum one year reviewed. Continue statin and bb, and lisinopril. No problem noted with right groin access site. Dressing removed. Cardiac rehab. Cardiology will likely sign off after renal US completed. Out-pt f/u will be coordinated. (2) Coronary artery disease Current Visit: Yes Status: Acute H/o PCI in 2013 at [facility] and PCI this admission. Asa, statin, and bb. Qualifiers: Coronary Disease-Associated Artery/Lesion type: [place] artery [place] vs. transplanted heart: [place] heart Associated angina: without angina Qualified Code(s): I25.10 - Atherosclerotic heart disease of [place] coronary artery without angina pectoris (3) Malignant hypertension Current Visit: Yes Status: Acute Elevated b/p despite multiple antihypertensives. Norvasc 10 mg daily started. SHe was weaned off NTG gtt and cardene gtt. Discussed with Dr. Forte, recommends renal US to r/o other causes of HTN. Low sodium diet and healthy heart exercise discussed. (4) Cardiomyopathy Current Visit: Yes Status: Acute TTE and LHC showed EF mildly reduced at 45%. Acute systolic dysfunction. Currently euvolemic. Continue carvedilol and lisinopril. Low sodium diet. Qualifiers: Cardiomyopathy type: ischemic Qualified Code(s): I25.5 - Ischemic cardiomyopathy Discussion w patient/family: The assessment and plan as outlined above was discussed with the patient and/or family members who expressed understanding and agreement. All questions were answered. Thank you for involving us in the care of your patient. Please call with any questions. Subjective Principal diagnosis: NSTEMI Interval history: No complaints overnight. States she is feeling much better. Objective Vital Signs, Last 4 Hours Temp Pulse Resp BP Pulse Ox 03/20/18 07:17 99.4 F 110 18 131/74 03/20/18 07:02 102 18 126/80 97 General: Conversant, No Apparent Distress HEENT: Atraumatic, Normocephaly, Mucus Membranes Moist Neck: No JVD, Normal carotid pulses Cardiac: Reg Rate and Rhythm, Normal S1 and S2, No Murmur Lungs: Normal Breath Sounds, No Wheeze, Rales, Rhonchi Neuro: Alert and responsive, No focal deficits noted Abdomen: Soft, Non-Tender Skin: No rashes noted on visualized skin Musculoskeletal: No Chest Wall Tenderness Extremities: No Clubbing, No Cyanosis, No Edema, Normal Pulses Results 03/19/18 04:18 03/19/18 04:18 Lab Results 03/19/18 09:27 Troponin I 0.60 H* - Imaging and Cardiology Echo: pending Cardiac cath: report reviewed - EKG Interpretation EKG results cardiology: personally reviewed Consult Discharge Plan - Plan Additional Instructions: RISK FACTORS: STOP SMOKING: If you smoke, STOP. Smoking or tobacco use significantly increa ses your risk of heart disease because nicotine causes the arteries to narrow or constrict. It also causes fats to stick to the artery. Your chances of having a heart attack are greatly increased if you continue to smoke. For more information, call the education line for smoking cessation 7-837-CVGBQQD EAT A LOW FAT/CHOLESTEROL/SODIUM DIET: This diet may help reduce your chances of having a heart attack. LIFTING: Avoid lifting anything more than 10 pounds for 5-7 days Prior to straining, laughing, sneezing and/or coughing, apply manual pressure directly over insertion site. ACTIVITY: You may walk or climb stairs as tolerated You can resume sexual activity as tolerated In general, you are encouraged to engage in a minimum of 30 minutes or more of moderate intensity physical activity, such as brisk walking, daily or at least 3-4 times weekly BATHING Do not submerge the site into water (bath tub, hot tub, swimming pool) for 1 week. This can be a source for infection into the blood stream. You may shower after 24 hours SITE CARE: After 24 hours, you may remove the dressing and leave the site open to air. Keep the site clean and dry. Clean gently and pat dry. You can expect bruising and tenderness that gradually resolve within a week or two. Return to work as instructed per your physician Resume driving as instructed per physician Keep all scheduled follow up appointments Resume medications as instructed IMPORTANT: If prescribed a Platelet Aggregation Inhibitor such as, Plavix, Brilinta or Effient: Duration of therapy is minimum one year These medications are often used in combination with Aspirin in prevention of future heart attacks Never discontinue unless consult with your [employer] STROKE (CVA) Risk factors for a stroke are: Age, cigarette smoking, diabetes, excessive alcohol consumption, family history, high blood pressure, overweight, physical inactivity, prior stroke, heart attack, diagnosis of carotid artery stenosis or other artery disease. Warning signs: Sudden numbness or weakness of the face, arm or leg; especially on one side of the body, sudden confusion, trouble speaking or understanding, sudden trouble seeing in one or both eyes, sudden trouble walking, dizziness, loss of balance or coordination, sudden severe headache with no cause. Call 911 or go to the Emergency Room. CONGESTIVE HEART FAILURE: If you have been diagnosed with Congestive Heart Failure (CHF) and your symptoms return, make an appointment with your physician Weigh yourself daily. Notify your physician if you have a weight gain of two or more pounds in one day or five or more pounds in one week. If you experience any difficulty breathing, please call 911 BLEEDING: Although the risk of bleeding is minimal, it can happen. If you have any b leeding from the site, apply firm pressure above the puncture site for 10-15 minutes. If the bleeding does not stop, continue manual pressure and call 911 Contact your physician if: You develop a fever greater than 101 degrees Fahrenheit Your site becomes reddened or has any drainage You have an increase in pain or burning at the site or if a large knot forms at the site. If you experience chest pain, shortness of breath, dizziness, or extreme tiredness, stop the activity and rest. Please notify your physicians office if you experience any of these symptoms and they are not relieved by rest please call 911! Referrals: Lita Finn [Primary Care Provider] -
[2018-03-20] MEDS ORDERED: BuPROPion XL (24 HR) 150 MG TABLET PO SCH (11:15)
[2018-03-20 11:50] VITALS: BP 116/73
--- NOTE | 2018-03-20 15:57 | Internal Med Progress Note ---
Hospitalist Progress Note - Encounter Date of Encounter: 03/20/18 Time of Encounter: 15:53 - Subjective Interval History: Pt denies chest pain or SOB. She denies fever chills N/V or diarrhea. She denies abdominal pain or RINALDI. - Exam Vitals: Temp Pulse Resp BP Pulse Ox 98.0 F 91 18 116/73 98 03/20/18 11:44 03/20/18 11:44 03/20/18 11:44 03/20/18 11:44 03/20/18 11:44 Exam: Gen: Alert, awake, Oriented to time,place and person Chest: Diminished breath sounds B/L, No wheezing, No crackles, No rales Heart: S1S2+ RRR No murmurs Abd: Soft, NT, BS +, No organomegaly Ext: No edema, pulses are palpable, No calf tenderness Neuro : Benign findings Skin: No rash. - Assessment and Plan (1) Chest pain Current Visit: Yes Status: Acute Assessment and Plan: Troponin bumped and peaked at 0.27. Was placed on Heparin gtt. Cardiology was consulted to see the patient. TTE showed EF 45%. No significant valvular disease. LHC completed and patient received PTCA and PCI to the pOM and SHAILESH mLAD. There was mild non-obstructive CAD remaining. EF 45%. Cont ASA + BB + Statin and lisinopril. (2) Elevated troponin Current Visit: Yes Status: Acute Assessment and Plan: Secondary to ischemic CAD see above (3) Coronary artery disease Current Visit: Yes Status: Acute Assessment and Plan: History of coronary artery disease status post PCI. Continue patient's beta angelo, statin, lisinopril, and LISY inhibitor. Continue cardiology recommendation as noted in their orders. (4) Type 2 diabetes mellitus Current Visit: Yes Status: Acute Assessment and Plan: ADA diet on ISS (5) Malignant hypertension Current Visit: Yes Status: Acute Assessment and Plan: Elevated b/p despite multiple antihypertensives. Norvasc 10 mg daily started. She was weaned off NTG gtt and cardene gtt. Currently on norvasc, coreg, and lisinopril (6) Cardiomyopathy Current Visit: Yes Status: Acute Assessment and Plan: TTE and LHC showed EF mildly reduced at 45%. Acute systolic dysfunction. Currently euvolemic. DVT Prophylaxis: Lovenox - Summary of Assessment and Plan Summary of Assessment and Plan: This is a 28-year-old female with a past medical history type 2 diabetes, hypertension, hyperlipidemia and myocardial infarction at age 22 and 2013 status post PCI in [facility] brought in by EMS because of chest pain. Pain described as midsternal , sharp with radiation to the left arm. She states episodes of pain have lasted from 1 second a 45 minutes in duration and have had a frequency of greater than 1 per hour for the last 4 days. Patient presented 2 days ago with similar symptoms and had a negative ACS workup. Initial laboratory workup was notable for a mildly elevated troponin of 0.04. No significant EKG changes were noted when compared to previous EKG. was noted to be hypertensive of 182/118. Patient received sublingual nitroglycerin in the ED with mild improvement in her chest pain. She was given a loading dose of aspirin and admitted for further evaluation. - Time Spent with Patient Total time spent is greater than 50% in coordination of care (as documented) at patient's floor/unit and/or counseling patient: less than 15 minutes Plan of Care Discussed with: patient Internal Medicine: Result - Labs CBC & Chem 7: 03/19/18 04:18 03/19/18 04:18 - ABG Interpretation ABG results: PT/INR, D-dimer PT 11.3 Seconds (9.4-12.1) 03/19/18 06:05 D-Dimer 309 ng/mLFEU (0-500) 03/18/18 20:49 - Impressions Impressions Echocardiogram 03/20/18 00:00 Impressions: LVEF 45-50%. Moderate concentric left ventricular hypertrophy. Mild left ventricular diastolic dysfunction. Normal right ventricular structure and function. No significant valvular dysfunction. Unable to estimate RVSP due to lack of TR jet. Left Ventricular Wall Motion: Rest Echo Findings The apex, apical septal, mid inferior septal, basal inferior septal and mid anterior septal issa were akinetic. All other wall segments showed normal motion. Findings: Study Quality * Technically adequate exam. ECG Findings * Normal sinus rhythm. Left Ventricle * LVEF 45-50%. * Moderate concentric left ventricular hypertrophy. * Mild left ventricular diastolic dysfunction. Right Ventricle * Normal right ventricular structure and function. Left Atrium * Normal left atrial size. Right Atrium * Normal right atrial size. Aortic Valve * Trileaflet aortic valve. * No aortic regurgitation. * No aortic stenosis. * Normal aortic valve structure. Mitral Valve * Normal mitral valve structure. * No mitral regurgitation. * No mitral stenosis. Tricuspid Valve * Normal tricuspid valve structure. * Unable to estimate RVSP due to lack of TR jet. * No tricuspid stenosis. * No tricuspid regurgitation. Pulmonic Valve * Normal pulmonic valve structure. * No pulmonic regurgitation. Aorta * Normally sized aortic root. Pericardium * The pericardium appears normal. IVC * Normal IVC dimensions and inspiratory collapse. Pulmonary Artery * Normal visualized portions of the main pulmonary artery. Consult Discharge Plan - Plan Additional Instructions: RISK FACTORS: STOP SMOKING: If you smoke, STOP. Smoking or tobacco use significantly increases your risk of heart disease because nicotine causes the arteries to narrow or constrict. It also causes fats to stick to the artery. Your chances of having a heart attack are greatly increased if you continue to smoke. For more information, call the education line for smoking cessation 3-571-UEJWFLX EAT A LOW FAT/CHOLESTEROL/SODIUM DIET: This diet may help reduce your chances of having a heart attack. LIFTING: Avoid lifting anything more than 10 pounds for 5-7 days Prior to straining, laughing, sneezing and/or coughing, apply manual pressure directly over insertion site. ACTIVITY: You may walk or climb stairs as tolerated You can resume sexual activity as tolerated In general, you are encouraged to engage in a minimum of 30 minutes or more of moderate intensity physical activity, such as brisk walking, daily or at least 3-4 times weekly BATHING Do not submerge the site into water (bath tub, hot tub, swimming pool) for 1 week. This can be a source for infection into the blood stream. You may shower after 24 hours SITE CARE: After 24 hours, you may remove the dressing and leave the site open to air. Keep the site clean and dry. Clean gently and pat dry. You can expect bruising and tenderness that gradually resolve within a week or two. Return to work as instructed per your physician Resume driving as instructed per physician Keep all scheduled follow up appointments Resume medications as instructed IMPORTANT: If prescribed a Platelet Aggregation Inhibitor such as, Plavix, Brilinta or Effient: Duration of therapy is minimum one year These medications are often used in combination with Aspirin in prevention of future heart attacks Never discontinue unless consult with your Slasher Operator STROKE (CVA) Risk factors for a stroke are: Age, cigarette smoking, diabetes, excessive alcohol consumption, family history, high blood pressure, overweight, physical inactivity, prior stroke, heart attack, diagnosis of carotid artery stenosis or other artery disease. Warning signs: Sudden numbness or weakness of the face, arm or leg; especially on one side of the body, sudden confusion, trouble speaking or understanding, sudden trouble seeing in one or both eyes, sudden trouble walking, dizziness, loss of balance or coordination, sudden severe headache with no cause. Call 911 or go to the Emergency Room. CONGESTIVE HEART FAILURE: If you have been diagnosed with Congestive Heart Failure (CHF) and your symptoms return, make an appointment with your physician Weigh yourself daily. Notify your physician if you have a weight gain of two or more pounds in one day or five or more pounds in one week. If you experience any difficulty breathing, please call 911 BLEEDING: Although the risk of bleeding is minimal, it can happen. If you have any bleeding from the site, apply firm pressure above the puncture site for 10-15 minutes. If the bleeding does not stop, continue manual pressure and call 911 Contact your physician if: You develop a fever greater than 101 degrees Fahrenheit Your site becomes reddened or has any drainage You have an increase in pain or burning at the site or if a large knot forms at the site. If you experience chest pain, shortness of breath, dizziness, or extreme tiredness, stop the activity and rest. Please notify your physicians office if you experience any of these symptoms and they are not relieved by rest please call 911! Referrals: Lita Finn [Primary Care Provider] - (1) Chest pain Qualifiers: Chest pain type: precordial pain Qualified Code(s): R07.2 - Precordial pain (3) Coronary artery disease Qualifiers: Coronary Disease-Associated Artery/Lesion type: [place] artery [place] vs. transplanted heart: [place] heart Associated angina: without angina Qualified Code(s): I25.10 - Atherosclerotic heart disease of [place] coronary artery without angina pectoris (4) Type 2 diabetes mellitus Qualifiers: Qualified Code(s): E11.9 - Type 2 diabetes mellitus without complications (6) Cardiomyopathy Qualifiers: Cardiomyopathy type: ischemic Qualified Code(s): I25.5 - Ischemic cardiomyopathy
[2018-03-20] MEDS ORDERED: Insulin LISPRO 300 UNITS/3 ML VIAL SQ SCH ×2 (16:30→21:00)
--- NOTE | 2018-03-20 17:03 | Event Note ---
Date of Encounter: 03/20/18 Time of Encounter: 17:02 Pt signing out AMA. States she wants to go trick or treating with her family. Will give scripts for plavix, lisinopril, and norvasc
[2018-03-21] MEDS ORDERED: *HR* Enoxaparin 40 MG/0.4 ML SYRINGE SQ SCH (06:00)
--- NOTE | 2018-03-21 21:30 | Electrocardiograph Report ---
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
--- NOTE | 2018-03-21 21:34 | Electrocardiograph Report ---
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
--- NOTE | 2018-03-25 11:24 | Invasive Diagnostic Lab Proc ---
Name: Olivia Santoro Date of Study: 03/19/2018 Date: 1990 Ht: 70.1in Medical Record#: [id number] Age: 28 Wt: 321.87lb Gender: Female BSA: 2.56 Order #: [id number] BMI: 46.08 Physicians Procedure Physician: Angel[facility] Rosenberg MD, [facility] Referring MD: Referring MD: Staff Name Position Time In Tank Cj RN Monitor 11:20 AM Tali Beasley RN Conveyor Belt Repairer 11:20 AM Eufemia Tavares RT (R) Scrub 11:20 AM Indications Indication Non-Stemi Procedures Performed Procedure L HRT ARTERY/VENTRICLE ANGIO PRQ CARD SHAILESH STENT W/ANGIO 1 VSL PRQ CARD BM STENT W/ANGIO 1 VSL MOD SED OTH PHYS/QHP 5/>YRS MOD SED OTHER PHYS/QHP EA MOD SED OTHER PHYS/QHP EA MOD SED OTHER PHYS/QHP EA Pre-Procedure Checklist Informed consent is complete signed and on chart. H&P is on chart. ID band is on and ID verified with patient. Patient NPO for procedure The procedure was described for the patient and questions were answered. Blood Pressure: 162/111 ECG is on chart. Plan of Care Patient will tolerate the procedure without complications. Adequate level of comfort will be maintained. Hemodynamics will remain stable Patient will recover from procedure without complications. Respiratory function will be maintained. Cardiac rhythm will remain stable. Patient temperature will be maintained. Patient and/or family have verbalized understanding of the procedure. Patient Education Chief Complaint/Reason for Test: Cardiac Cath Developmental Category: Adult (18-64 years) Developmentally Appropriate for Age: Yes Learning Barriers: None Education Needs: Procedure Education Method: Verbal Information Taught: Cardiac Cath Educational Evaluation: Able to repeat information Intravenous Access Time IV Size Location DC'd Fluid/Drip Rate Units RN 11:12 AM 20g 1 1/4" Patent On Arrival Rt Arm 04:41 PM Started with 20g 1 1/4" Lt Antecubital Allergies No Known Allergies Vital Signs Time BP (mmHg) HR (bpm) O2 Sat. RR (bpm) LOC 11:13 AM 162 / 111 78 95 % 18 5 = Fully awake and oriented or at pre-proc level 11:27 AM / % 5 = Fully awake and oriented or at pre-proc level 11:27 AM / % 4 = Oriented but drowsy 11:42 AM / % 4 = Oriented but drowsy 11:57 AM / % 4 = Oriented but drowsy 12:47 PM 180 / 117 90 96 % 15 5 = Fully awake and oriented or at pre-proc level 12:11 PM 190 / 120 93 96 % 16 12:16 PM 179 / 120 104 94 % 17 12:21 PM 186 / 120 91 94 % 22 12:26 PM 175 / 110 103 96 % 24 12:31 PM 180 / 114 % 11:32 AM 164 / 118 87 100 % 21 11:36 AM 168 / 104 97 100 % 18 11:41 AM 155 / 99 96 98 % 22 11:46 AM 164 / 115 113 98 % 23 11:51 AM 168 / 79 94 99 % 14 11:56 AM 179 / 114 88 100 % 22 12:01 PM 182 / 121 93 96 % 14 12:06 PM 188 / 120 94 94 % 26 01:00 PM 173 / 110 110 96 % 15 5 = Fully awake and oriented or at pre-proc level 01:16 PM 155 / 106 104 96 % 20 5 = Fully awake and oriented or at pre-proc level 01:32 PM 165 / 110 105 96 % 20 4 = Oriented but drowsy 01:52 PM 169 / 108 106 97 % 20 4 = Oriented but drowsy 02:16 PM 164 / 118 110 96 % 20 4 = Oriented but drowsy 02:30 PM 171 / 117 112 96 % 20 5 = Fully awake and oriented or at pre-proc level 02:45 PM 171 / 117 116 96 % 20 5 = Fully awake and oriented or at pre-proc level 03:03 PM 171 / 117 117 96 % 20 5 = Fully awake and oriented or at pre-proc level 03:14 PM 172 / 117 116 95 % 20 5 = Fully awake and oriented or at pre-proc level 03:32 PM 169 / 105 113 95 % 16 5 = Fully awake and oriented or at pre-proc level 03:35 PM 164 / 103 117 98 % 16 5 = Fully awake and oriented or at pre-proc level 03:52 PM 173 / 123 134 98 % 16 5 = Fully awake and oriented or at pre-proc level 03:59 PM 170 / 116 135 99 % 16 5 = Fully awake and oriented or at pre-proc level 04:13 PM 160 / 112 137 98 % 16 5 = Fully awake and oriented or at pre-proc level 04:30 PM 150 / 107 125 96 % 16 5 = Fully awake and oriented or at pre-proc level 04:45 PM 148 / 103 142 98 % 16 5 = Fully awake and oriented or at pre-proc level 05:00 PM 154 / 103 142 98 % 15 5 = Fully awake and oriented or at pre-proc level 05:23 PM 141 / 94 140 98 % 16 5 = Fully awake and oriented or at pre-proc level 05:53 PM 135 / 99 133 98 % 16 5 = Fully awake and oriented or at pre-proc level 06:04 PM 148 / 106 137 98 % 16 5 = Fully awake and oriented or at pre-proc level 06:07 PM 122 / 81 131 97 % 16 5 = Fully awake and oriented or at pre-proc level 06:32 PM 141 / 95 126 93 % 16 5 = Fully awake and oriented or at pre-proc level Procedural Medications Time Medication Dose Units Method Given By 11:27 AM Oxygen 2 L/min nasal cannula Tali Beasley RN 11:35 AM Versed 2 mg Intravenous Tali Beasley RN 11:35 AM Fentanyl 50 mcg Intravenous Tali Beasley RN 11:40 AM Lidocaine 2% 20 ml Subcutaneous Angelia Rosenberg MD, FACC 11:42 AM Benadryl 50 mg Intravenous Tali Beasley RN 11:51 AM Angiomax 0.75mg/kg bolus: 22 ml Intravenous Tali Beasley RN 11:52 AM Angiomax 1.75mg/kg/hr: 51 ml Intravenous Tali Beasley RN 11:56 AM Nitroglycerin 200 mcg Intracoronary Angelia Rosenberg MD, FACC 11:57 AM Versed 1 mg Intravenous Tali Beasley RN 11:57 AM Fentanyl 25 mcg Intravenous Tali Beasley RN 11:58 AM Nitroglycerin 10 mcg/min Intravenous Tali Beasley RN 12:01 PM Versed 1 mg Intravenous Tali Beasley RN 12:02 PM Fentanyl 25 mcg Intravenous Tali Beasley RN 12:03 PM Nitroglycerin 200 mcg Intracoronary Angelia Rosenberg MD, FACC 12:06 PM Nitroglycerin 20 mcg/hr Intravenous Tali Beasley RN 12:13 PM Versed 1 mg Intravenous Tali Beasley RN 12:13 PM Fentanyl 25 mcg Intravenous Tali Beasley RN 12:14 PM Nitroglycerin 200 mcg Intracoronary Angelia Rosenberg MD, FACC 12:25 PM Nitroglycerin 200 mcg Intracoronary Angelia Rosenberg MD, FACC 12:27 PM Brilinta 180 mg Orally Tali Beasley RN 12:28 PM Hydralazine 10 mg Intravenous Tali Beasley RN 01:03 PM Morphine 2 mg Intravenous Lis Billy RN 01:16 PM Zofran 8 mg Intravenous Lis Billy RN 03:29 PM Hydralazine 10 mg Intravenous Dianne Griffiths RN 04:46 PM Cardene 5 mg/hr Intravenous Lis Billy RN ASA Classification: CLASS II- Mild systemic disease (i.e. well-controlled diabetes, hypertension, asthma, cigarette smoking) Beronica Score Preprocedure Postprocedure Activity 2- Moves 4 extremities sustained head lift Activity 2- Moves 4 extremities sustained head lift Circulation 2- SBP +/= 20 points of pre-anesthetic level Circulation 2- SBP +/= 20 points of pre-anesthetic level Consciousness 2- Awake and alert oriented x 3 Consciousness 2- Awake and alert oriented x 3 O2 Saturation 2- Able to maintain O2 satruation of 92% on room air O2 Saturation 2- Able to maintain O2 satruation of 92% on room air Respiratory 2- Able to deep breathe and cough well Respiratory 2- Able to deep breathe and cough well Total Score 10 Total Score 10 Contrast Agent: Isovue Diagnostic Contrast: 341 ml Total Contrast: 341 ml Fluoro Dose: 70325 mGy Procedure Log Time Note Enter By 11:20 AM Pt arrived to shift lab technician 2 at 11:20 [facility] 11:20 AM Cj Fu RN Position: Monitor Time in: :20 [facility] 11:20 AM Tali Beasley RN Position: Conveyor Belt Repairer Time in: 11:20 [facility] 11:20 AM Eufemia Tavares RT (R) Position: Scrub Time in: 11:20 [facility] 11:20 AM Patient charges- Angio tray pack, Navilyst 3mm J, Pulse Oximetry and ACIST tubing and transducer [facility] 11:26 AM Physician arrived 11:26 [facility] 11:26 AM Meet and nuzhat completed [facility] 11:26 AM Sign in performed according to hospital policy. Informed consent was obtained. [facility] 11:26 AM Procedure start 11: [facility] Time: Patient comfortable and pain free: Yes [facility] : AM Time: LOC: 5 = Fully awake and oriented or at pre-proc level [facility] : AM CathStat AM Time: : Oxygen on at 2 L/min per nasal cannula by Tali Beasley RN [facility] 11: AM Vitals capture started with the following parameters, Patient=Adult, Interval=5 min, Initial Gqdmjmlk=269 mmHg, Deflation Rate=5 mmHg, Cuff placed on Right Arm 11:32 AM HR=87 bpm, ZXZH=124/118 mmhg, TgA9=859.0 %, Resp=21 B/min, EtCO2=35 mmHg, Comment=nsr 11:33 AM ASA Class CLASS II- Mild systemic disease (i.e. well-controlled diabetes, hypertension, asthma, cigarette smoking) [facility] 11:35 AM Time: 11:35 Versed 2 mg Intravenous Given by Tali Beasley RN [facility] AM Time: 11:35 Fentanyl 50 mcg Intravenous Given by Tali Beasley RN [facility] 11:36 AM Pressure channel 1 zeroed. 11:36 AM HR=97 bpm, TYVO=875/104 mmhg, TyP0=668.0 %, Resp=18 B/min, Comment=nsr 11:40 AM Clinical Presentation: Non-STEMI [facility] 11:40 AM Time out was performed according to hospital policy. Conscious sedation and anesthesia was achieved (see medication log with in this report above) [facility] :41 AM HR=96 bpm, ESQL=741/99 mmhg, SpO2=98.0 %, Resp=22 B/min, EtCO2=37 mmHg, Comment=nsr 11: AM Time: 11:40 20 ml Lidocaine 2% to right groin Subcutaneous Given by Angelia Rosenberg MD, [facility] : AM Time: LOC: 4 = Oriented but drowsy [facility] AM Time: Patient comfortable and pain free: Yes [facility] 11: AM 5Fr FL 4 catheter inserted over the wire DNC [facility] :43 AM Time: :42 Benadryl 50 mg Intravenous Given by Tali Beasley RN [facility] 11:43 AM Recorded Pressure: Ao, ZZ=720, Condition=Condition 1 (Aorta) Ao 133/105/119 11:43 AM LCA angiography performed in multiple views. [email or web address] 11:45 AM Catheter removed [email or web address] 11:45 AM 5Fr FR 4 catheter inserted over the wire [facility] jcallihan 11:45 AM RCA angiography performed in multiple views. [email or web address] 11:46 AM Recorded Pressure: Ao, KI=070, Condition=Condition 1 (Aorta) Ao 165/122/142 11:46 AM KA=198 bpm, XAKB=767/115 mmhg, SpO2=98.0 %, Resp=23 B/min, Comment=nsr 11:47 AM Coronary Dominance: right [email or web address] 11:49 AM Pressure channel 1 zeroed. 11:49 AM Recorded Pressure: LV, HR=96, Condition=Condition 1 (Left Ventricle) LV 171/-19/4 11:50 AM Catheter removed [facility] 11[facility]50 AM 5Fr Pigtail catheter inserted over the wire [facility] jcallihan 11:50 AM Recorded Pressure: LV, Ao, HR=96, Condition=Condition 1 (Left Ventricle) LV 155/44/70, (Aorta) Ao 153/114/134 11:51 AM HR=94 bpm, QTKQ=709/79 mmhg, SpO2=99.0 %, Resp=14 B/min, Comment=nsr 11:51 AM Time: 11:51 Angiomax 0.75mg/kg bolus: 22 ml Intravenous Given by Tali Beasley RN Trujillo pump [facility] 11[facility]52 AM Time: 11:52 Angiomax 1.75mg/kg/hr: 51 ml Intravenous Given by Tali Beasley RN Trujillo pump [email or web address] 11:52 AM Lesion found in 1st Marginal. Pre Stenosis: 99 Pre GORDY Flow: 3: Complete and Brisk Flow/Perfusion [email or web address] 11:52 AM PCI Status Urgent [email or web address] 11:52 AM Inflation device was opened. [email or web address] 11:53 AM Sheath exchanged for a 6 Fr 11 cm Cordis Viki sheath [id number] [email or web address] 11:56 AM 6Fr XB LAD 3.5 [place] Bright-Tip guide catheter was used to cannulate the PCI vessel successfully. reused? No [email or web address] 11:56 AM .014 Prowater 180cm guide wire across target lesion- successful. reused? No [email or web address] 11:56 AM HR=88 bpm, FIRP=431/114 mmhg, FvY4=200.0 %, Resp=22 B/min, Comment=nsr 11:56 AM Time: 11:56 Nitroglycerin 200 mcg Intracoronary Given by [facility]56 AM Recorded Pressure: Ao, HR=87, Condition=Condition 1 (Aorta) Ao 193/111/146 11:57 AM Time: 11:42 Patient comfortable and pain free: Yes [facility] 11[facility]57 AM Time: 11:57 Versed 1 mg Intravenous Given by Tali Beasley RN 11:57 AM Time: 11:42LOC: 4 = Oriented but drowsy [facility] 11[facility]57 AM Time: 11:57 Fentanyl 50 mcg Intravenous Given by Tali Beasley RN 11:58 AM Time: 11:58 Nitroglycerin 10 mcg/min Intravenous Given by Tali Beasley RN 11:58 AM 2.0 mm x 15 mm Emerge Monorail balloon across target lesion- successful. reused? No [facility] 12[facility]00 PM Balloon inflated @ 10 iain for 30 seconds [facility] 12[facility]00 PM Recorded Pressure: Ao, HR=93, Condition=Condition 1 (Aorta) Ao 172/121/145 12:01 PM HR=93 bpm, WCFG=386/121 mmhg, SpO2=96.0 %, Resp=14 B/min, Comment=nsr 12:01 PM Balloon inflated @ 8 iain for 20 seconds [facility] 12[facility]02 PM Time: 12:01 Versed 1 mg Intravenous Given by Tali Beasley RN 12:02 PM Time: 12:02 Fentanyl 25 mcg Intravenous Given by Tali Beasley RN 12:03 PM Time: 12:03 Nitroglycerin 200 mcg Intracoronary Given by [facility] 12[facility]04 PM Recorded Pressure: Ao, HD=004, Condition=Condition 1 (Aorta) Ao 156/101/127 12:05 PM physician reviewing films [facility] 12[facility]06 PM Time: 12:06 Nitroglycerin 20 mcg/hr Intravenous Given by Tali Beasley RN [facility] 12:06 PM Balloon catheter removed intact. [email or web address] 12:06 PM HR=94 bpm, ZJMT=889/120 mmhg, SpO2=94.0 %, Resp=26 B/min, EtCO2=36 mmHg, Comment=nsr 12:07 PM 2.25mm x 16mm Synergy drug-eluting stent across target lesion- successful Lot #[id number] [email or web address] 12:08 PM Stent deployed @ 12 iain for 30 seconds [email or web address] 12:09 PM Stent balloon reinflated @ 18 iain for 17 seconds [email or web address] 12:09 PM Stent delivery system removed intact. [email or web address] 12:11 PM HR=93 bpm, WFRO=519/120 mmhg, SpO2=96.0 %, Resp=16 B/min, Comment=nsr 12:12 PM Time: 11:57 Patient comfortable and pain free: Yes [email or web address] 12:12 PM 3.0mm x 20mm Synergy drug-eluting stent across target lesion- successful Lot #[id number] [facility] 12:12 PM Stent deployed @ 12 iain for 30 seconds [facility] 12:13 PM Time: 12:13 Versed 1 mg Intravenous Given by Tali Be[facility] 12:13 PM Time: 12:13 Fentanyl 25 mcg Intravenous Given by Tali Beasley RN [facility] 12:13 PM Stent balloon reinflated @ 16 iain for 11 seconds [facility] 12:14 PM Time: 12:14 Nitroglycerin 200 mcg Intracoronary Given by [facility] MD, [facility] 12:16 PM UM=258 bpm, JIHJ=225/120 mmhg, SpO2=94.0 %, Resp=17 B/min, Comment=nsr 12:19 PM Stent delivery system removed intact. [email or web address] 12:19 PM physician reviewing films [facility] 12:20 PM Lesion found in Mid LAD. Pre Stenosis: 90 Pre GORDY Flow: 3: Complete and Brisk Flow/Perfusion [email or web address] 12:20 PM wire repositioned down the LAD jcallihan 12:21 PM 2.25mm x 12mm Synergy drug-eluting stent across target lesion- successful Lot #[id number] [email or web address] 12:21 PM HR=91 bpm, YNYC=154/120 mmhg, SpO2=94.0 %, Resp=22 B/min, EtCO2=38 mmHg, Comment=nsr 12:23 PM Stent deployed @ 12 iain for 30 seconds [facility] 12:23 PM Stent balloon reinflated @ 16 iain for 12 seconds jcallan 12:24 PM Time: 11:57LOC: 4 = Oriented but drowsy jcallihan 12:24 PM Stent balloon reinflated @ 18 iain for 10 seconds [email or web address] 12:26 PM Time: 12:25 Nitroglycerin 200 mcg Intracoronary Given by Angelia [facility]berg MD [facility] 12:26 PM ME=385 bpm, ICRI=811/110 mmhg, SpO2=96.0 %, Resp=24 B/min, Comment=nsr 12:27 PM Bolus angiogram of right Femoral complete: 2 ml/sec for a total of 4 mls [facility] 12:27 PM Time: 12:12 Patient comfortable and pain free: Yes [email or web address] 12:27 PM Time: 12:27 Brilinta 180 mg Orally Given by Tali Beasley RN [facility] 12:29 PM Time: 12:28 Hydralazine 10 mg Intravenous Given by Tali Beasley RN [facility] 12:30 PM Procedure completed at 12:30 03/19/2018 [facility] 12:31 PM GJFD=839/114 mmhg 12:39 PM Sign out completed: Radiation Dose 1736 mGy, 22429 cGy/cm2 Fluoro Time: 9.9 Isovue 370 - 200ml contrast 341 ml given by Angelia Rosenberg MD, FACC. Complications: None. 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 Cardiac Rehab Consult needed: YesConfirmed administered medications: Yes [email or web address] 12:39 PM Isovue 370 - 200ml,2 Bottle(s) used. [email or web address] 12:40 PM Sheath left in place to be pulled on floor/holding area j[facility]ihan 12:40 PM Estimated Blood Loss: less than 20cc jcallihan 12:40 PM Post ECG NSR jcallihan 12:40 PM Post Blood Pressure 175/110 jcallihan 12:43 PM 12:40 Post Pulses Bilateral DP & PT 2+ jcallihan 12:44 PM Information taught Cardiac Cath and PCI j[facility]ihan 12:45 PM Education needs Procedure, Plan of Care, and Responsibilities of Patient in Care jcallihan 12:45 PM Learning barriers :None jcallihan 12:45 PM Education Methods Verbal [email or web address] 12:46 PM Education evaluation Able to repeat information jcallihan 12:46 PM Site status No bleeding/hematoma - Rt Groin as reported by Sites, Eufemia RT (R) at 12:46 [email or web address] 12:46 PM Opsite applied jcallihan 12:47 PM Report given to Clotilde RN Pt taken to Holding room Room #4. 12:46 jcallihan 12:47 PM Plavix, Effient or Brilinta given Yes jcallihan 12:47 PM Delay to floor No [email or web address] 12:47 PM Patient out of room: 12:47 jcallihan 12:47 PM family not here at this time, patient states that there isnt anyone for Dr. [facility] to [facility] 12[facility]48 PM Complications: None [email or web address] 12:49 PM Lesion found in Proximal RCA. Pre Stenosis: 30 Pre GORDY Flow: [email or web address] 12:49 PM Lesion found in Mid RCA. Pre Stenosis: 40 Pre GORDY Flow: [email or web address] 12:49 PM Lesion found in Distal LMCA. Pre Stenosis: 20 Pre GORDY Flow: [email or web address] 12:50 PM Lesion found in 1st Diagonal. Pre Stenosis: 50 Pre GORDY Flow: jcallihan 12:54 PM Lesion found in Proximal Circumflex. Pre Stenosis: 20 Pre GORDY Flow: jcallihan 12:55 PM Lesion found in Mid Circumflex. Pre Stenosis: 30 Pre GORDY Flow: [email or web address] 12:55 PM Lesion found in Distal Circumflex. Pre Stenosis: 30 Pre GORDY Flow: [email or web address] 01:00 PM pt c/o 8/10 back pain, give Morphine that is ordered on JUL from inpatient MD per Dr. Rosenberg [email or web address] 01:00 PM Left Main Coronary Artery with 20% stenosis [email or web address] 01:00 PM Mid/Distal Left Anterior Descending Coronary Artery and diagonal branches with 90% stenosis. If graft is supplying this area, 0 % stenosis [email or web address] 01:01 PM Circumflex, Obtuse Marginal, Left Posterior Descending, and Left Posterolateral Coronary Arteries with 99 % stenosis. If graft is supplying this area, 0 % stenosis [email or web address] 01:01 PM Right Coronary, Right Posterior Descending Arteries with Right Posterolateral and Acute Marginal branches with 40 % stenosis. If graft is supplying this area, 0 % stenosis [email or web address] 01:08 PM Time: 13:03 Morphine 2 mg Intravenous Given by Lis Billy RN [email or web address] 01:08 PM pt c/o nausea after being given morphine, 8mg zofran given per MAR orders [email or web address] 01:16 PM Time: 13:16 Zofran 8 mg Intravenous Given by Lis Billy RN [email or web address] 01:17 PM pt resting comfortably in bed, appears in no obvious distress [email or web address] 01:28 PM angiomax infusion complete [email or web address] 02:10 PM pt given morning dose of cardiac meds [email or web address] 02:11 PM pt crying stating her low back hurts. Helped patient reposition in the bed, states she feels much better already [email or web address] 03:27 PM sheath can be pulled by 1530, but patient remains hypertensive. c/o headache. resting comfortably in bed. Dr. Rosenberg notified of pt's vitals. Order received for Hydralazine 10mg IV [email or web address] 03:30 PM Time: 15:29 Hydralazine 10 mg Intravenous Given by Dianne Griffiths RN [email or web address] 03:43 PM Arterial site held using manual compression and V+ Pad for 30 minutes by Dianne Griffiths RN and Lis Billy RN [email or web address] 03:52 PM pt started to get nauseated, began vomiting, site remained stable, no hematoma or active bleeding [email or web address] 04:09 PM pt reports feeling better after vomiting, had very large amount of vomit [email or web address] 04:13 PM MABLE Mason notified Dr. Rosenberg of pt's status, vomiting and vital signs [email or web address] 04:14 PM Site status No bleeding/hematoma - Rt Groin as reported by Dianne Griffiths RN at 16:14 [email or web address] 04:14 PM Opsite applied [email or web address] 04:41 PM additional IV started for this RN [email or web address] 04:46 PM Time: 16:46 Cardene 5 mg/hr Intravenous Given by Lis Billy RN Trujillo pump [email or web address] 05:12 PM pt given scheduled dose of Morphine and Tylenol [email or web address] 05:53 PM pt laughing and talking on the phone [email or web address] 05:53 PM Cardene gtt increased to 7.5mg/hr [email or web address] 06:16 PM Report given to Angel AKINS Pt taken to Room #14. 18:16 [email or web address] 06:51 PM Patient out of room: 18:51 [email or web address] Equipment Used Size Length Diameter Item Category Angio tray pack Other Trujillo pump Other Inflation kit Other Cordis Viki sheath Britetip Guide catheter Prowater Guidewire Emerge PTCA Dilatation Catheter Monorail Balloon Promus Element Plus Rx Drug Eluting Stent Promus Element Plus Rx Drug Eluting Stent Promus Element Plus Rx Drug Eluting Stent V+Pad Patch Complications Complication None None Hemodynamics Pressures Site Systolic/A Wave Diastolic/V Wave Mean AO 133 105 119 AO 165 122 142 LV 171 -19 4 LV 155 44 70 AO 153 114 134 AO 193 111 146 AO 172 121 145 AO 156 101 127 Post Procedure Information Blood Pressure: 175/110 mmHg Rhythm: NSR Post procedural instructions were given Closure Device Time Device Success/Fail Site Checks Time Location Status Staff Sheath In? Note 12:46 PM Rt Groin No bleeding/hematoma Sites, Eufemia RT (R) 12:49 PM Rt Groin No bleeding/ No Hematoma Pauline Carter RT 01:00 PM Rt Groin No bleeding/ No Hematoma Lis Billy RN 01:16 PM Rt Groin No bleeding/ No Hematoma Lis Billy RN 01:31 PM Rt Groin No bleeding/ No Hematoma Dianne Griffiths RN Yes 01:52 PM Rt Groin No bleeding/ No Hematoma Dianne Griffiths RN Yes 02:16 PM Rt Groin No bleeding/ No Hematoma Dianne Griffiths RN Yes 02:30 PM Rt Groin No bleeding/ No Hematoma Dianne Griffiths RN Yes 02:55 PM Rt Groin No bleeding/ No Hematoma Dianne Griffiths RN Yes 03:03 PM Rt Groin No bleeding/ No Hematoma Dianne Griffiths RN Yes 03:13 PM Rt Groin No bleeding/ No Hematoma Dianne Griffiths RN Yes 03:32 PM Rt Groin No bleeding/ No Hematoma Dianne Griffiths RN Yes 04:14 PM Rt Groin No bleeding/hematoma Dianne Griffiths RN 04:00 PM Rt Groin No bleeding/ No Hematoma Lis Billy RN 04:30 PM Rt Groin No bleeding/ No Hematoma Lis Billy RN 05:00 PM Rt Groin No bleeding/ No Hematoma Lis Billy RN 05:23 PM Rt Groin No bleeding/ No Hematoma Lis Billy RN 05:53 PM Rt Groin No bleeding/ No Hematoma Lis Billy RN 06:04 PM Rt Groin No bleeding/ No Hematoma Dianne Griffiths RN 06:30 PM Rt Groin No bleeding/ No Hematoma Lis Billy RN Pulses Time Site Pre-Procedure Post-Procedure Note 03/19/2018 11:13:00 AM Bilateral radial 2+ 03/19/2018 11:13:00 AM Bilateral DP & PT 2+ 12:40:00 PM Bilateral DP & PT 2+ Updated by Lis Billy RN on 03/25/2018 11:15:38 AM electronically signed on 03/25/2018 11:16:16 AM with status of Final
== END 2018-03-20 17:15 | disposition left against medical advice (07) | DRG 174 ==
LOC: 3BNU 20:38 → EMEROOARM 20:38 → SUATTDRO 22:45 → 3BNU 23:26 → 2NNU 03-19 18:51
PROVIDERS: ADMIT Internal Medicine; ATTEND Family Medicine

== ENCOUNTER 2019-03-19 21:58 | Observation (INO) ==
[2019-03-19 22:43] LABS: Basophils # 0.1 K/mcL (0.0-0.2); Basophils % 0.7 %; Eosinophils # 0.3 K/mcL (0.0-0.6); Eosinophils % 2.7 %; Hemoglobin 12.9 g/dL (11.5-15.4); Immature Granulocytes % 0.3 % (0-4); Lymphocytes # 3.8 K/mcL (0.6-4.6); Lymphocytes % 37.9 %; Mean Corpuscular HGB Conc 35.8 g/dL (31.6-35.5); Mean Corpuscular Hemoglobin 28.8 pg (28.0-33.3); Mean Corpuscular Volume 80.4 fL (83.0-100.0); Mean Platelet Volume 9.7 fL (9.4-12.4); Monocytes # 0.6 K/mcL (0.0-1.3); Monocytes % 6.2 %; Neutrophils # 5.2 K/mcL (1.6-8.9); Platelet Count 378 K/mcL (140-400); Red Blood Count 4.48 M/mcL (3.82-4.97); Red Cell Distribution Width 12.6 % (11.5-14.5); Segmented Neutrophils % 52.2 %; White Blood Count 9.9 K/mcL (4.3-11.1)
[2019-03-19 23:05] LABS: BUN/Creatinine Ratio 25 (6-26); Blood Urea Nitrogen 19 mg/dL (6-20); Carbon Dioxide 23 mEq/L (23-29); Chloride 96 mEq/L (98-107); Glucose 426 mg/dL (70-105); Osmolality,Calculated 290 (280-300); Sodium 130 mEq/L (136-145); Troponin I < 0.03 ng/mL (< 0.04); eGFR For African Americans > 60 (> 60); eGFR For Non-African Americans > 60 (> 60)
[2019-03-19] MEDS ORDERED: Insulin Regular, Human 100 UNIT/ML SQ ONE (23:46)
[2019-03-20] MEDS ORDERED: Naloxone 0.4 MG/ML INJ IVP PRN (02:36)
[2019-03-20] MEDS ORDERED: D5% in Water 1,000 ML IVC PRN (02:45)
[2019-03-20] MEDS ORDERED: Dextrose Gel 15 GM/37.5 ML TUBE PO PRN ×2 (02:45)
[2019-03-20] MEDS ORDERED: *HR* Dextrose 50 % in Water (Syg) 50 ML SYRINGE IVP PRN (02:45)
[2019-03-20 04:46] LABS: Basophils # 0.1 K/mcL (0.0-0.2); Basophils % 0.8 %; Eosinophils # 0.3 K/mcL (0.0-0.6); Eosinophils % 3.1 %; Hematocrit 36.6 % (35.3-44.9); Hemoglobin 12.5 g/dL (11.5-15.4); Immature Granulocytes % 0.2 % (0-4); Lymphocytes # 3.7 K/mcL (0.6-4.6); Lymphocytes % 42.4 %; Mean Corpuscular HGB Conc 34.2 g/dL (31.6-35.5); Mean Corpuscular Hemoglobin 28.3 pg (28.0-33.3); Mean Corpuscular Volume 82.8 fL (83.0-100.0); Mean Platelet Volume 9.7 fL (9.4-12.4); Monocytes # 0.6 K/mcL (0.0-1.3); Monocytes % 7.2 %; Neutrophils # 4.1 K/mcL (1.6-8.9); Platelet Count 372 K/mcL (140-400); Red Blood Count 4.42 M/mcL (3.82-4.97); Red Cell Distribution Width 12.5 % (11.5-14.5); Segmented Neutrophils % 46.3 %; White Blood Count 8.8 K/mcL (4.3-11.1)
[2019-03-20 05:08] LABS: BUN/Creatinine Ratio 25 (6-26); Blood Urea Nitrogen 16 mg/dL (6-20); Carbon Dioxide 24 mEq/L (23-29); Chloride 98 mEq/L (98-107); Glucose 231 mg/dL (70-105); Osmolality,Calculated 285 (280-300); Potassium 3.4 mEq/L (3.5-5.1); Sodium 133 mEq/L (136-145); eGFR For African Americans > 60 (> 60); eGFR For Non-African Americans > 60 (> 60)
[2019-03-20] MEDS ORDERED: Insulin LISPRO 300 UNITS/3 ML VIAL SQ SCH (06:00)
[2019-03-20] MEDS ORDERED: *HR* Heparin 5,000 UNIT/ML VIAL SQ SCH (06:00)
[2019-03-20] MEDS ORDERED: hydrOXYzine pamoate 25 MG CAPSULE PO PRN (09:52)
[2019-03-20] MEDS ORDERED: Potassium Chloride 40 MEQ, Lidocaine 1% 2 ML in 0.9 % Sodium Chloride 500 ML IVPB ONE (10:08)
[2019-03-20] MEDS ORDERED: Regadenoson 0.4 MG/5 ML SYRINGE IVP ONE (10:30)
[2019-03-20 11:35] VITALS: BP 138/98
[2019-03-21] MEDS ORDERED: Aspirin Enteric Coated 81 MG Tablet PO SCH (09:00)
[2019-03-21] MEDS ORDERED: Lisinopril 20 MG TABLET PO SCH (09:00)
== END 2019-03-20 12:17 | disposition home or self-care (01) ==
LOC: EMEROOARM 21:58 → 3BNU 21:58
PROVIDERS: ADMIT Family Medicine; ATTEND Family Medicine

== ENCOUNTER 2019-10-17 12:06 | Observation (INO) ==
[2019-10-17] MEDS ORDERED: Aspirin 325 MG TABLET PO ONE (12:18)
[2019-10-17] MEDS ORDERED: Nitroglycerin 0.4 MG TAB.SUBL SL PRN ×2 (12:18→14:00)
[2019-10-17 12:47] LABS: Basophils # 0.1 K/mcL (0.0-0.2); Basophils % 0.6 %; Eosinophils # 0.2 K/mcL (0.0-0.6); Hematocrit 37.3 % (35.3-44.9); Hemoglobin 12.7 g/dL (11.5-15.4); Immature Granulocytes % 0.4 % (0-4); Lymphocytes # 2.5 K/mcL (0.6-4.6); Mean Corpuscular Hemoglobin 28.3 pg (28.0-33.3); Mean Corpuscular Volume 83.3 fL (83.0-100.0); Mean Platelet Volume 9.9 fL (9.4-12.4); Monocytes # 0.5 K/mcL (0.0-1.3); Monocytes % 5.7 %; Neutrophils # 6.2 K/mcL (1.6-8.9); Platelet Count 316 K/mcL (140-400); Red Blood Count 4.48 M/mcL (3.82-4.97); Red Cell Distribution Width 12.5 % (11.5-14.5); Segmented Neutrophils % 65.3 %; White Blood Count 9.5 K/mcL (4.3-11.1)
[2019-10-17 12:49] LABS: Prothrombin Time 11.1 Seconds (9.4-12.1)
[2019-10-17 13:14] LABS: Alanine Aminotransferase 12 Units/L (7-52); Albumin 3.8 g/dL (3.5-5.7); Albumin/Globulin Ratio 1.2 (1.1-2.2); Alkaline Phosphatase 67 Units/L (34-104); Aspartate Amino Transferase 12 Units/L (13-39); BUN/Creatinine Ratio 19 (6-26); Bilirubin,Total 0.3 mg/dL (0.3-1.0); Blood Urea Nitrogen 14 mg/dL (6-20); Calcium 8.9 mg/dL (8.6-10.3); Carbon Dioxide 23 mEq/L (23-29); Chloride 94 mEq/L (98-107); Globulin 3.2 g/dL (2.4-3.5); Glucose 463 mg/dL (70-105); Lipase 50 Units/L (11-82); Osmolality,Calculated 285 (280-300); Potassium 3.9 mEq/L (3.5-5.1); Sodium 127 mEq/L (136-145); Troponin I < 0.03 ng/mL (< 0.04); eGFR For African Americans > 60 (> 60); eGFR For Non-African Americans > 60 (> 60)
[2019-10-17] MEDS ORDERED: Naloxone 0.4 MG/ML INJ IVP PRN (13:58)
[2019-10-17] MEDS ORDERED: *HR* Dextrose 50 % in Water (Syg) 50 ML SYRINGE IVP PRN (14:02)
[2019-10-17] MEDS ORDERED: D5% in Water 1,000 ML IVC PRN (14:02)
[2019-10-17] MEDS ORDERED: Dextrose Gel 15 GM/37.5 ML TUBE PO PRN ×2 (14:02)
[2019-10-17 15:10] LABS: Chol/HDL Ratio 7.8 (0-4.9); Cholesterol 289 mg/dL (< 200); HDL Cholesterol 37 mg/dL (40-59); Triglycerides 420 mg/dL (< 150)
[2019-10-17] MEDS: Insulin LISPRO 300 UNITS/3 ML VIAL SQ SCH (17:02)
[2019-10-17] MEDS: *HR* Heparin 5,000 UNIT/ML VIAL SQ SCH (17:04)
[2019-10-17 17:21] LABS: Estimated Average Glucose 312 mg/dl
[2019-10-17] MEDS: *HR* LORazepam 0.5 MG TABLET PO SCH (20:28)
[2019-10-17] MEDS ORDERED: carvediloL 25 MG TABLET PO SCH (21:00)
[2019-10-17] MEDS ORDERED: Insulin LISPRO 300 UNITS/3 ML VIAL SQ SCH (21:00)
[2019-10-17] MEDS ORDERED: DOXEPIN 10MG PO SCH (21:00)
[2019-10-18 00:53] LABS: BUN/Creatinine Ratio 17 (6-26); Blood Urea Nitrogen 13 mg/dL (6-20); Calcium 8.9 mg/dL (8.6-10.3); Carbon Dioxide 26 mEq/L (23-29); Chloride 99 mEq/L (98-107); Glucose 193 mg/dL (70-105); Magnesium 1.7 mg/dL (1.6-2.6); Osmolality,Calculated 283 (280-300); Phosphorous 3.7 mg/dL (2.7-4.5); Potassium 3.4 mEq/L (3.5-5.1); Sodium 134 mEq/L (136-145); eGFR For African Americans > 60 (> 60); eGFR For Non-African Americans > 60 (> 60)
[2019-10-18] MEDS: *HR* Heparin 5,000 UNIT/ML VIAL SQ SCH (05:54)
[2019-10-18] MEDS ORDERED: Regadenoson 0.4 MG/5 ML SYRINGE IVP ONE (07:39)
[2019-10-18] MEDS ORDERED: Insulin DETEMIR 100 UNIT/ML X5UNITS SQ SCH (09:00)
[2019-10-18] MEDS ORDERED: lisinopriL 20 MG TABLET PO SCH (09:00)
[2019-10-18] MEDS ORDERED: Aspirin Enteric Coated 81 MG Tablet PO SCH (09:00)
[2019-10-18] MEDS: Insulin LISPRO 300 UNITS/3 ML VIAL SQ SCH ×2 (10:21→10:43)
[2019-10-18] MEDS ORDERED: Isosorbide MONOnitrate (24 HR) 30 MG TAB.ER.24H PO SCH (11:00)
[2019-10-18] MEDS: *HR* LORazepam 0.5 MG TABLET PO SCH (11:28)
[2019-10-18 15:10] VITALS: BP 139/85
== END 2019-10-18 17:46 | disposition left against medical advice (07) ==
LOC: EMEROOARM 12:06 → 3BNU 12:06
PROVIDERS: ADMIT Internal Medicine; ATTEND Internal Medicine

== ENCOUNTER 2020-04-28 13:23 | Observation (INO) ==
[2020-04-28] MEDS ORDERED: 0.9 % Sodium Chloride 500 ML IVC ONE (13:33)
[2020-04-28] MEDS ORDERED: Nitroglycerin 0.4 MG TAB.SUBL SL PRN ×2 (13:33→15:30)
[2020-04-28] MEDS ORDERED: Aspirin 81 MG TAB.CHEW PO ONE (13:33)
[2020-04-28] MEDS ORDERED: Nitroglycerin 0.4 MG TAB.SUBL SL ONE (13:44)
[2020-04-28] MEDS ORDERED: Nitroglycerin 1 INCH/GM PACKET TP ONE (13:46)
[2020-04-28 14:12] LABS: Basophils # 0.1 K/mcL (0.0-0.2); Basophils % 0.7 %; Eosinophils # 0.3 K/mcL (0.0-0.6); Eosinophils % 2.6 %; Hematocrit 40.3 % (35.3-44.9); Hemoglobin 13.5 g/dL (11.5-15.4); Immature Granulocytes % 0.3 % (0-4); Lymphocytes # 3.2 K/mcL (0.6-4.6); Lymphocytes % 26.5 %; Mean Corpuscular HGB Conc 33.5 g/dL (31.6-35.5); Mean Corpuscular Hemoglobin 28.2 pg (28.0-33.3); Mean Corpuscular Volume 84.3 fL (83.0-100.0); Mean Platelet Volume 9.5 fL (9.4-12.4); Monocytes # 0.5 K/mcL (0.0-1.3); Monocytes % 4.3 %; Neutrophils # 7.9 K/mcL (1.6-8.9); Platelet Count 391 K/mcL (140-400); Prothrombin Time 11.9 Seconds (9.4-12.1); Red Blood Count 4.78 M/mcL (3.82-4.97); Red Cell Distribution Width 12.8 % (11.5-14.5); Segmented Neutrophils % 65.6 %
[2020-04-28 14:14] LABS: Activated Partial Thrombo Time 28.6 Seconds (26.0-36.0)
[2020-04-28 14:14] LABS: Bilirubin,Urine Negative (Negative); Blood,Urine Negative (Negative); Clarity,Urine Clear (Clear); Color,Urine Light-Yellow (Yellow); Glucose,Urine (UA) Normal (Normal); Ketones,Urine Negative (Negative); Leukocyte Esterase,Urine Negative (Negative); Mucus,Urine Few per lpf (None-Few); Nitrite,Urine Negative (Negative); Protein,Urine 100 mg/dL (Neg-Trace); RBC,Urine 0-3 per hpf (0-3); Specific Gravity,Urine 1.026 (1.010-1.025); Squamous Epithelial Cell,Urine Few per hpf (None-Few); Urobilinogen,Urine Normal (Normal); WBC,Urine 0-3 per hpf (0-3)
[2020-04-28 14:41] LABS: Troponin I 0.22 ng/mL (< 0.04)
[2020-04-28 14:43] LABS: Albumin 4.3 g/dL (3.5-5.7); Albumin/Globulin Ratio 1.2 (1.1-2.2); Bilirubin,Direct 0.1 mg/dL (0.0-0.2); Bilirubin,Indirect 0.3 mg/dL (0.0-1.0); Bilirubin,Total 0.4 mg/dL (0.3-1.0); Globulin 3.5 g/dL (2.4-3.5); Total Protein 7.8 g/dL (6.4-8.9)
[2020-04-28] MEDS ORDERED: *HR* Heparin 5,000 UNIT/ML VIAL IVP PRN (14:45)
[2020-04-28] MEDS ORDERED: *HR* Heparin 5,000 UNIT/ML VIAL IVP ONE (14:45)
[2020-04-28 14:47] LABS: BUN/Creatinine Ratio 18 (6-26); Blood Urea Nitrogen 13 mg/dL (6-20); Calcium 9.4 mg/dL (8.6-10.3); Carbon Dioxide 24 mEq/L (23-29); Chloride 101 mEq/L (98-107); Glucose 117 mg/dL (70-105); Osmolality,Calculated 281 (280-300); Potassium 3.9 mEq/L (3.5-5.1); Sodium 135 mEq/L (136-145); eGFR For African Americans > 60 (> 60); eGFR For Non-African Americans > 60 (> 60)
[2020-04-28] MEDS ORDERED: Acetaminophen 325 MG TABLET PO PRN (15:25)
[2020-04-28] MEDS ORDERED: Dextrose Gel 15 GM/37.5 ML TUBE PO PRN ×2 (15:25)
[2020-04-28] MEDS ORDERED: D5% in Water 1,000 ML IVC PRN (15:25)
[2020-04-28] MEDS ORDERED: Ondansetron 4 MG/2 ML VIAL IVP PRN (15:25)
[2020-04-28] MEDS ORDERED: *HR* Dextrose 50 % in Water (Vial) 50 ML VIAL IVP PRN (15:25)
[2020-04-28] MEDS ORDERED: Naloxone 0.4 MG/ML INJ IVP PRN (15:25)
[2020-04-28] MEDS ORDERED: Perflutren Lipid Microsphere 1.3 ML in 0.9 % Sodium Chloride 8.7 ML IVP PRN (15:37)
[2020-04-28 15:41] LABS: Hematocrit 37.6 % (35.3-44.9); Hemoglobin 12.6 g/dL (11.5-15.4); Mean Corpuscular HGB Conc 33.5 g/dL (31.6-35.5); Mean Corpuscular Hemoglobin 28.8 pg (28.0-33.3); Mean Corpuscular Volume 85.8 fL (83.0-100.0); Mean Platelet Volume 9.6 fL (9.4-12.4); Platelet Count 338 K/mcL (140-400); Red Blood Count 4.38 M/mcL (3.82-4.97); Red Cell Distribution Width 12.8 % (11.5-14.5); White Blood Count 11.3 K/mcL (4.3-11.1)
[2020-04-28 15:44] LABS: Heparin anti-factor XA UFH < 0.04 IU/mL (0.30-0.70)
[2020-04-28] MEDS: Heparin 25,000UNIT/250ML 1/2NS 25,000 UNIT/250 ML IV.SOLN IVC SCH (16:04)
[2020-04-28] MEDS: Insulin LISPRO 300 UNITS/3 ML VIAL SQ SCH (17:14)
[2020-04-28] MEDS: carvediloL 6.25 MG TABLET PO SCH (18:01)
[2020-04-28] MEDS ORDERED: *HR* LORazepam 0.5 MG TABLET PO PRN (18:31)
[2020-04-28] MEDS: *HR* Heparin 5,000 UNIT/ML VIAL IVP PRN (21:50)
[2020-04-28] MEDS: Insulin DETEMIR 100 UNIT/ML X5UNITS SQ SCH (21:56)
[2020-04-29 04:27] LABS: Basophils # 0.1 K/mcL (0.0-0.2); Basophils % 0.7 %; Eosinophils # 0.4 K/mcL (0.0-0.6); Eosinophils % 3.8 %; Hematocrit 37.5 % (35.3-44.9); Hemoglobin 12.4 g/dL (11.5-15.4); Immature Granulocytes % 0.2 % (0-4); Lymphocytes # 3.7 K/mcL (0.6-4.6); Lymphocytes % 39.7 %; Mean Corpuscular HGB Conc 33.1 g/dL (31.6-35.5); Mean Corpuscular Hemoglobin 28.3 pg (28.0-33.3); Mean Corpuscular Volume 85.6 fL (83.0-100.0); Mean Platelet Volume 9.5 fL (9.4-12.4); Monocytes # 0.5 K/mcL (0.0-1.3); Monocytes % 5.4 %; Neutrophils # 4.6 K/mcL (1.6-8.9); Platelet Count 303 K/mcL (140-400); Red Blood Count 4.38 M/mcL (3.82-4.97); Red Cell Distribution Width 12.9 % (11.5-14.5); Segmented Neutrophils % 50.2 %; White Blood Count 9.2 K/mcL (4.3-11.1)
[2020-04-29 04:45] LABS: BUN/Creatinine Ratio 17 (6-26); Blood Urea Nitrogen 12 mg/dL (6-20); Calcium 8.3 mg/dL (8.6-10.3); Carbon Dioxide 21 mEq/L (23-29); Chloride 102 mEq/L (98-107); Chol/HDL Ratio 8.5 (0-4.9); Cholesterol 255 mg/dL (< 200); Glucose 196 mg/dL (70-105); HDL Cholesterol 30 mg/dL (40-59); Magnesium 1.6 mg/dL (1.6-2.6); Osmolality,Calculated 279 (280-300); Sodium 132 mEq/L (136-145); Triglycerides 680 mg/dL (< 150); eGFR For African Americans > 60 (> 60); eGFR For Non-African Americans > 60 (> 60)
[2020-04-29] MEDS: *HR* Heparin 5,000 UNIT/ML VIAL IVP PRN (05:14)
[2020-04-29 07:03] LABS: Estimated Average Glucose 292 mg/dl; Hemoglobin A1C 11.8 %
[2020-04-29] MEDS ORDERED: Regadenoson 0.4 MG/5 ML SYRINGE IVP ONE (09:45)
[2020-04-29] MEDS ORDERED: lisinopriL 20 MG TABLET PO SCH (11:30)
[2020-04-29] MEDS: Insulin LISPRO 300 UNITS/3 ML VIAL SQ SCH ×3 (11:39→17:27)
[2020-04-29] MEDS: Aspirin 81 MG TAB.CHEW PO SCH (12:53)
[2020-04-29] MEDS: carvediloL 6.25 MG TABLET PO SCH (13:14)
[2020-04-29] MEDS: Insulin DETEMIR 100 UNIT/ML X5UNITS SQ SCH ×2 (13:15→20:40)
[2020-04-29] MEDS: Heparin 25,000UNIT/250ML 1/2NS 25,000 UNIT/250 ML IV.SOLN IVC SCH (17:27)
[2020-04-29] MEDS ORDERED: *HR* LORazepam 0.5 MG TABLET PO ONE (17:43)
[2020-04-30 04:41] LABS: Hematocrit 39.2 % (35.3-44.9); Hemoglobin 12.8 g/dL (11.5-15.4); Mean Corpuscular HGB Conc 32.7 g/dL (31.6-35.5); Mean Corpuscular Hemoglobin 28.4 pg (28.0-33.3); Mean Corpuscular Volume 87.1 fL (83.0-100.0); Mean Platelet Volume 9.6 fL (9.4-12.4); Platelet Count 324 K/mcL (140-400); Red Cell Distribution Width 12.9 % (11.5-14.5); White Blood Count 7.8 K/mcL (4.3-11.1)
[2020-04-30 05:06] LABS: BUN/Creatinine Ratio 17 (6-26); Blood Urea Nitrogen 11 mg/dL (6-20); Calcium 8.7 mg/dL (8.6-10.3); Carbon Dioxide 21 mEq/L (23-29); Chloride 103 mEq/L (98-107); Glucose 232 mg/dL (70-105); Osmolality,Calculated 285 (280-300); Sodium 134 mEq/L (136-145); eGFR For African Americans > 60 (> 60); eGFR For Non-African Americans > 60 (> 60)
[2020-04-30] MEDS: Heparin 25,000UNIT/250ML 1/2NS 25,000 UNIT/250 ML IV.SOLN IVC SCH (05:20)
[2020-04-30 07:08] VITALS: BP 148/91
[2020-04-30] MEDS: Insulin LISPRO 300 UNITS/3 ML VIAL SQ SCH (08:13)
[2020-04-30] MEDS: Aspirin 81 MG TAB.CHEW PO SCH (08:26)
[2020-04-30] MEDS ORDERED: Nitroglycerin 0.4 MG TAB.SUBL SL PRN (08:31)
[2020-04-30] MEDS ORDERED: carvediloL 25 MG TABLET PO SCH ×3 (09:00→17:00)
[2020-04-30] MEDS ORDERED: Isosorbide MONOnitrate (24 HR) 30 MG TAB.ER.24H PO SCH (09:00)
[2020-04-30] MEDS ORDERED: lisinopriL 20 MG TABLET PO SCH (09:00)
[2020-04-30] MEDS ORDERED: lisinopriL 10 MG TABLET PO SCH (09:00)
[2020-04-30] MEDS: Insulin DETEMIR 100 UNIT/ML X5UNITS SQ SCH (09:22)
== END 2020-04-30 11:19 | disposition home or self-care (01) ==
LOC: 3BNU 13:23 → EMEROOARM 13:23 → 3BNU 16:38
PROVIDERS: ADMIT Internal Medicine; ATTEND Internal Medicine

== ENCOUNTER 2020-05-28 08:00 | Inpatient (IN) ==
[2020-05-28] MEDS ORDERED: Isovue-370 500 ML BOTTLE IVP ONE ×2 (08:16)
[2020-05-28 08:51] LABS: Basophils # 0.1 K/mcL (0.0-0.2); Basophils % 0.5 %; Eosinophils # 0.1 K/mcL (0.0-0.6); Eosinophils % 0.8 %; Hematocrit 36.8 % (35.3-44.9); Hemoglobin 12.8 g/dL (11.5-15.4); Immature Granulocytes % 0.4 % (0-4); Lymphocytes # 1.5 K/mcL (0.6-4.6); Lymphocytes % 10.3 %; Mean Corpuscular HGB Conc 34.8 g/dL (31.6-35.5); Mean Corpuscular Hemoglobin 29.7 pg (28.0-33.3); Mean Corpuscular Volume 85.4 fL (83.0-100.0); Mean Platelet Volume 9.9 fL (9.4-12.4); Monocytes # 0.7 K/mcL (0.0-1.3); Platelet Count 346 K/mcL (140-400); Red Blood Count 4.31 M/mcL (3.82-4.97); Red Cell Distribution Width 12.7 % (11.5-14.5); White Blood Count 14.5 K/mcL (4.3-11.1)
[2020-05-28] MEDS ORDERED: 0.9 % Sodium Chloride 1,000 ML IVC ONE (09:06)
[2020-05-28] MEDS ORDERED: Ondansetron 4 MG/2 ML VIAL IVP ONE (10:18)
[2020-05-28 10:35] LABS: BUN/Creatinine Ratio 18 (6-26); Blood Urea Nitrogen 15 mg/dL (6-20); C-Reactive Protein 160 mg/L (Less than 10); Calcium 9.5 mg/dL (8.6-10.3); Carbon Dioxide 21 mEq/L (23-29); Chloride 93 mEq/L (98-107); Glucose 411 mg/dL (70-105); Osmolality,Calculated 284 (280-300); Sodium 128 mEq/L (136-145); eGFR For African Americans > 60 (> 60); eGFR For Non-African Americans > 60 (> 60)
[2020-05-28] MEDS ORDERED: Piperacillin/Tazobactam 3.375 GM in 0.9 % Sodium Chloride Mini Bag 100 ML IVPB ONE (10:59)
[2020-05-28] MEDS: 0.9 % Sodium Chloride 1,000 ML IVC SCH ×2 (11:20→13:28)
[2020-05-28] MEDS ORDERED: Vancomycin 2,000 MG/520 ML IV.SOLN IVPB ONE (11:30)
[2020-05-28] MEDS ORDERED: Naloxone 0.4 MG/ML INJ IVP PRN (11:52)
[2020-05-28] MEDS ORDERED: Ondansetron 4 MG/2 ML VIAL IVP PRN (11:52)
[2020-05-28] MEDS ORDERED: Dextrose Gel 15 GM/37.5 ML TUBE PO PRN ×2 (11:56)
[2020-05-28] MEDS ORDERED: *HR* Dextrose 50 % in Water (Vial) 50 ML VIAL IVP PRN (11:56)
[2020-05-28] MEDS ORDERED: D5% in Water 1,000 ML IVC PRN (11:56)
[2020-05-28] MEDS ORDERED: Insulin DETEMIR 100 UNIT/ML X5UNITS SUBQ ONE (12:30)
[2020-05-28] MEDS: Ringers Solution, Lactated 1,000 ML IVC SCH (14:54)
[2020-05-28] MEDS: Insulin LISPRO 300 UNITS/3 ML VIAL SUBQ SCH ×2 (16:18→20:37)
[2020-05-28] MEDS: Piperacillin/Tazobactam 3.375 GM in 0.9 % Sodium Chloride Mini Bag 100 ML IVPB SCH (18:17)
[2020-05-28] MEDS: Acetaminophen 325 MG TABLET PO PRN (18:17)
[2020-05-28 18:21] LABS: Bilirubin,Urine Negative (Negative); Blood,Urine Large (Negative); Clarity,Urine Clear (Clear); Color,Urine Yellow (Yellow); Glucose,Urine (UA) 70 mg/dL (Normal); Ketones,Urine Trace mg/dL (Negative); Leukocyte Esterase,Urine Moderate (Negative); Mucus,Urine Few per lpf (None-Few); Nitrite,Urine Negative (Negative); Protein,Urine 50 mg/dL (Neg-Trace); RBC,Urine TNTC per hpf (0-3); Specific Gravity,Urine > 1.030 (1.010-1.025); Squamous Epithelial Cell,Urine Few per hpf (None-Few); Urobilinogen,Urine Normal (Normal); WBC,Urine 30-50 per hpf (0-3)
[2020-05-28] MEDS: *HR* LORazepam 0.5 MG TABLET PO PRN (20:49)
[2020-05-28] MEDS: Vancomycin 2,000 MG/520 ML IV.SOLN IVPB SCH (22:52)
[2020-05-29] MEDS: Acetaminophen 325 MG TABLET PO PRN (00:20)
[2020-05-29] MEDS: Piperacillin/Tazobactam 3.375 GM in 0.9 % Sodium Chloride Mini Bag 100 ML IVPB SCH ×3 (02:13→17:58)
[2020-05-29 06:19] LABS: Basophils # 0.1 K/mcL (0.0-0.2); Basophils % 0.3 %; Eosinophils # 0.1 K/mcL (0.0-0.6); Eosinophils % 0.5 %; Hematocrit 35.1 % (35.3-44.9); Hemoglobin 11.7 g/dL (11.5-15.4); Immature Granulocytes % 0.4 % (0-4); Lymphocytes # 1.8 K/mcL (0.6-4.6); Lymphocytes % 12.1 %; Mean Corpuscular HGB Conc 33.3 g/dL (31.6-35.5); Mean Corpuscular Volume 87.1 fL (83.0-100.0); Mean Platelet Volume 10.2 fL (9.4-12.4); Monocytes # 1.1 K/mcL (0.0-1.3); Monocytes % 7.5 %; Neutrophils # 11.8 K/mcL (1.6-8.9); Platelet Count 326 K/mcL (140-400); Red Blood Count 4.03 M/mcL (3.82-4.97); Red Cell Distribution Width 12.8 % (11.5-14.5); Segmented Neutrophils % 79.2 %; White Blood Count 14.9 K/mcL (4.3-11.1)
[2020-05-29 06:39] LABS: BUN/Creatinine Ratio 10 (6-26); Blood Urea Nitrogen 7 mg/dL (6-20); Calcium 8.6 mg/dL (8.6-10.3); Carbon Dioxide 23 mEq/L (23-29); Chloride 97 mEq/L (98-107); Glucose 224 mg/dL (70-105); Osmolality,Calculated 279 (280-300); Potassium 3.2 mEq/L (3.5-5.1); Sodium 132 mEq/L (136-145); eGFR For African Americans > 60 (> 60); eGFR For Non-African Americans > 60 (> 60)
[2020-05-29] MEDS ORDERED: Insulin DETEMIR 100 UNIT/ML X5UNITS SUBQ SCH (07:00)
[2020-05-29] MEDS: Insulin LISPRO 300 UNITS/3 ML VIAL SUBQ SCH ×4 (08:57→20:07)
[2020-05-29] MEDS: Ringers Solution, Lactated 1,000 ML IVC SCH (09:05)
[2020-05-29] MEDS: Insulin DETEMIR 100 UNIT/ML X5UNITS SUBQ SCH ×2 (09:05→20:07)
[2020-05-29] MEDS ORDERED: Ringers Solution, Lactated 1,000 ML ONE (10:11)
[2020-05-29] MEDS ORDERED: Acetaminophen IV 1,000 MG/100 ML BAG IVPB ONE ×2 (10:35→11:18)
[2020-05-29] MEDS ORDERED: Lidocaine -MPF 2% 2 ML VIAL ONE (11:00)
[2020-05-29] MEDS ORDERED: *HR* Midazolam HCl 2 MG/2 ML VIAL ONE (11:00)
[2020-05-29] MEDS ORDERED: *HR* FentaNYL (PF) 100 MCG/2 ML VIAL ONE (11:00)
[2020-05-29] MEDS ORDERED: Ondansetron 4 MG/2 ML VIAL ONE (11:01)
[2020-05-29] MEDS ORDERED: *HR* Propofol 200 MG/20 ML VIAL IVP ONE (11:01)
[2020-05-29] MEDS ORDERED: *HR* Succinylcholine 200 MG/10 ML VIAL IVP ONE (11:03)
[2020-05-29] MEDS ORDERED: CefOXitin 1,000 MG VIAL ONE (11:13)
[2020-05-29] MEDS ORDERED: *HR* OxyCODONE Immed Rel 5 MG TABLET PO PRN (11:18)
[2020-05-29] MEDS ORDERED: *HR* Labetalol 20 MG/4 ML SYRINGE IVP PRN (11:18)
[2020-05-29] MEDS ORDERED: Famotidine 20 MG/2 ML VIAL IVP ONE (11:18)
[2020-05-29] MEDS ORDERED: *HR* HYDROmorphone (PF) 1 MG/ML SYRINGE IVP PRN (11:18)
[2020-05-29] MEDS ORDERED: Pregabalin 75 MG CAPSULE PO ONE (11:18)
[2020-05-29] MEDS ORDERED: Metoclopramide 10 MG/2 ML VIAL ONE (11:23)
[2020-05-29] MEDS ORDERED: Dexamethasone 4 MG/ML VIAL ONE (11:32)
[2020-05-29] MEDS ORDERED: Insulin Human Regular 6 UNIT in 0.9 % Sodium Chloride 10 ML IV ONE (12:06)
[2020-05-29] MEDS: Vancomycin 2,000 MG/520 ML IV.SOLN IVPB SCH (15:09)
[2020-05-29] MEDS ORDERED: Nitroglycerin 0.4 MG TAB.SUBL SL PRN (16:28)
[2020-05-29] MEDS ORDERED: Insulin LISPRO 300 UNITS/3 ML VIAL SUBQ SCH (17:00)
[2020-05-29] MEDS ORDERED: *HR* Heparin 5,000 UNIT/ML VIAL SQ SCH (18:00)
[2020-05-29] MEDS: *HR* LORazepam 0.5 MG TABLET PO PRN (20:07)
[2020-05-30] MEDS ORDERED: Ondansetron 4 MG/2 ML VIAL IVP PRN (00:34)
[2020-05-30] MEDS ORDERED: *HR* Labetalol 20 MG/4 ML SYRINGE IVP PRN (00:34)
[2020-05-30] MEDS ORDERED: Dextrose Gel 15 GM/37.5 ML TUBE PO PRN ×2 (00:34)
[2020-05-30] MEDS ORDERED: Naloxone 0.4 MG/ML INJ IVP PRN (00:34)
[2020-05-30] MEDS ORDERED: Acetaminophen 325 MG TABLET PO PRN (00:34)
[2020-05-30] MEDS ORDERED: Nitroglycerin 0.4 MG TAB.SUBL SL PRN (00:34)
[2020-05-30] MEDS ORDERED: *HR* LORazepam 0.5 MG TABLET PO PRN (00:34)
[2020-05-30] MEDS ORDERED: D5% in Water 1,000 ML IVC PRN (00:34)
[2020-05-30] MEDS ORDERED: *HR* Dextrose 50 % in Water (Vial) 50 ML VIAL IVP PRN (00:34)
[2020-05-30] MEDS ORDERED: Vancomycin 2,000 MG/520 ML IV.SOLN IVPB SCH (03:00)
[2020-05-30 03:08] LABS: Basophils % 0.1 %; Hematocrit 35.6 % (35.3-44.9); Hemoglobin 11.8 g/dL (11.5-15.4); Immature Granulocytes % 0.5 % (0-4); Lymphocytes % 7.5 %; Mean Corpuscular HGB Conc 33.1 g/dL (31.6-35.5); Mean Corpuscular Hemoglobin 28.5 pg (28.0-33.3); Mean Platelet Volume 9.9 fL (9.4-12.4); Monocytes # 0.6 K/mcL (0.0-1.3); Monocytes % 4.3 %; Neutrophils # 12.1 K/mcL (1.6-8.9); Platelet Count 325 K/mcL (140-400); Red Blood Count 4.14 M/mcL (3.82-4.97); Red Cell Distribution Width 12.4 % (11.5-14.5); Segmented Neutrophils % 87.6 %; White Blood Count 13.8 K/mcL (4.3-11.1)
[2020-05-30 03:28] LABS: BUN/Creatinine Ratio 14 (6-26); Blood Urea Nitrogen 9 mg/dL (6-20); Calcium 8.7 mg/dL (8.6-10.3); Carbon Dioxide 22 mEq/L (23-29); Chloride 96 mEq/L (98-107); Glucose 353 mg/dL (70-105); Magnesium 1.8 mg/dL (1.6-2.6); Osmolality,Calculated 283 (280-300); Phosphorous 2.6 mg/dL (2.7-4.5); Potassium 4.1 mEq/L (3.5-5.1); Sodium 130 mEq/L (136-145); eGFR For African Americans > 60 (> 60); eGFR For Non-African Americans > 60 (> 60)
[2020-05-30] MEDS: Vancomycin 1,500 MG/265 ML IV.SOLN IVPB SCH ×3 (03:38→20:31)
[2020-05-30] MEDS: Piperacillin/Tazobactam 3.375 GM in 0.9 % Sodium Chloride Mini Bag 100 ML IVPB SCH ×3 (03:39→17:26)
[2020-05-30] MEDS: *HR* Heparin 5,000 UNIT/ML VIAL SQ SCH ×2 (03:42→17:26)
[2020-05-30] MEDS ORDERED: carvediloL 25 MG TABLET PO SCH (08:00)
[2020-05-30] MEDS: Insulin LISPRO 300 UNITS/3 ML VIAL SUBQ SCH ×7 (08:29→20:30)
[2020-05-30] MEDS: Insulin DETEMIR 100 UNIT/ML X5UNITS SUBQ SCH ×2 (08:30→20:30)
[2020-05-30] MEDS: lisinopriL 20 MG TABLET PO SCH (08:31)
[2020-05-30] MEDS: carvediloL 25 MG TABLET PO SCH (08:31)
[2020-05-30] MEDS: Isosorbide MONOnitrate (24 HR) 30 MG TAB.ER.24H PO SCH (08:31)
[2020-05-30] MEDS: Aspirin 81 MG TAB.CHEW PO SCH (08:31)
[2020-05-30] MEDS ORDERED: lisinopriL 20 MG TABLET PO SCH (09:00)
[2020-05-30] MEDS ORDERED: Aspirin 81 MG TAB.CHEW PO SCH (09:00)
[2020-05-30] MEDS ORDERED: Insulin DETEMIR 100 UNIT/ML X5UNITS SUBQ SCH (09:00)
[2020-05-30] MEDS ORDERED: Isosorbide MONOnitrate (24 HR) 30 MG TAB.ER.24H PO SCH (09:00)
[2020-05-31 02:33] LABS: BUN/Creatinine Ratio 21 (6-26); Blood Urea Nitrogen 14 mg/dL (6-20); Calcium 8.4 mg/dL (8.6-10.3); Carbon Dioxide 23 mEq/L (23-29); Chloride 101 mEq/L (98-107); Glucose 304 mg/dL (70-105); Magnesium 1.7 mg/dL (1.6-2.6); Osmolality,Calculated 288 (280-300); Potassium 3.9 mEq/L (3.5-5.1); Sodium 133 mEq/L (136-145); eGFR For African Americans > 60 (> 60); eGFR For Non-African Americans > 60 (> 60)
[2020-05-31] MEDS: Piperacillin/Tazobactam 3.375 GM in 0.9 % Sodium Chloride Mini Bag 100 ML IVPB SCH ×3 (03:09→19:43)
[2020-05-31] MEDS: Vancomycin 1,500 MG/265 ML IV.SOLN IVPB SCH ×3 (03:56→20:35)
[2020-05-31] MEDS: *HR* Heparin 5,000 UNIT/ML VIAL SQ SCH ×2 (05:34→16:34)
[2020-05-31] MEDS: lisinopriL 20 MG TABLET PO SCH (08:32)
[2020-05-31] MEDS: Isosorbide MONOnitrate (24 HR) 30 MG TAB.ER.24H PO SCH (08:32)
[2020-05-31] MEDS: Aspirin 81 MG TAB.CHEW PO SCH (08:32)
[2020-05-31] MEDS: carvediloL 25 MG TABLET PO SCH (08:33)
[2020-05-31] MEDS: Insulin LISPRO 300 UNITS/3 ML VIAL SUBQ SCH ×7 (08:34→20:33)
[2020-05-31] MEDS: Insulin DETEMIR 100 UNIT/ML X5UNITS SUBQ SCH ×2 (14:41→20:34)
[2020-06-01] MEDS: Vancomycin 1,500 MG/265 ML IV.SOLN IVPB SCH ×2 (03:23→17:45)
[2020-06-01] MEDS: Piperacillin/Tazobactam 3.375 GM in 0.9 % Sodium Chloride Mini Bag 100 ML IVPB SCH ×2 (03:24→12:55)
[2020-06-01] MEDS: *HR* Heparin 5,000 UNIT/ML VIAL SQ SCH ×2 (03:35→17:20)
[2020-06-01 06:38] LABS: Basophils # 0.1 K/mcL (0.0-0.2); Basophils % 0.9 %; Eosinophils # 0.1 K/mcL (0.0-0.6); Eosinophils % 1.4 %; Hematocrit 32.8 % (35.3-44.9); Hemoglobin 10.6 g/dL (11.5-15.4); Lymphocytes # 2.9 K/mcL (0.6-4.6); Lymphocytes % 31.2 %; Mean Corpuscular HGB Conc 32.3 g/dL (31.6-35.5); Mean Corpuscular Hemoglobin 28.6 pg (28.0-33.3); Mean Corpuscular Volume 88.6 fL (83.0-100.0); Mean Platelet Volume 9.5 fL (9.4-12.4); Monocytes # 0.7 K/mcL (0.0-1.3); Monocytes % 7.7 %; Neutrophils # 5.4 K/mcL (1.6-8.9); Platelet Count 352 K/mcL (140-400); Red Cell Distribution Width 12.8 % (11.5-14.5); Segmented Neutrophils % 57.8 %; White Blood Count 9.4 K/mcL (4.3-11.1)
[2020-06-01 06:56] LABS: BUN/Creatinine Ratio 15 (6-26); Blood Urea Nitrogen 10 mg/dL (6-20); Carbon Dioxide 23 mEq/L (23-29); Chloride 101 mEq/L (98-107); Glucose 325 mg/dL (70-105); Magnesium 1.6 mg/dL (1.6-2.6); Osmolality,Calculated 292 (280-300); Phosphorous 3.7 mg/dL (2.7-4.5); Potassium 3.7 mEq/L (3.5-5.1); Sodium 135 mEq/L (136-145); eGFR For African Americans > 60 (> 60); eGFR For Non-African Americans > 60 (> 60)
[2020-06-01] MEDS: carvediloL 25 MG TABLET PO SCH (07:53)
[2020-06-01] MEDS: Isosorbide MONOnitrate (24 HR) 30 MG TAB.ER.24H PO SCH (07:53)
[2020-06-01] MEDS: Aspirin 81 MG TAB.CHEW PO SCH (07:53)
[2020-06-01] MEDS: lisinopriL 20 MG TABLET PO SCH (07:54)
[2020-06-01] MEDS: Insulin LISPRO 300 UNITS/3 ML VIAL SUBQ SCH ×7 (07:58→21:35)
[2020-06-01] MEDS: Insulin DETEMIR 100 UNIT/ML X5UNITS SUBQ SCH ×2 (10:15→21:36)
[2020-06-01] MEDS ORDERED: cefTRIAXone 1,000 MG in Water for inj. (sterile) 10 ML IVP SCH (16:00)
[2020-06-02] MEDS: *HR* Heparin 5,000 UNIT/ML VIAL SQ SCH (06:04)
[2020-06-02] MEDS: Isosorbide MONOnitrate (24 HR) 30 MG TAB.ER.24H PO SCH (07:22)
[2020-06-02] MEDS: carvediloL 25 MG TABLET PO SCH (07:22)
[2020-06-02] MEDS: Aspirin 81 MG TAB.CHEW PO SCH (07:22)
[2020-06-02] MEDS: lisinopriL 20 MG TABLET PO SCH (07:23)
[2020-06-02] MEDS: Insulin LISPRO 300 UNITS/3 ML VIAL SUBQ SCH ×4 (07:23→11:51)
[2020-06-02] MEDS: Insulin DETEMIR 100 UNIT/ML X5UNITS SUBQ SCH (07:28)
[2020-06-02 11:06] VITALS: BP 149/88
== END 2020-06-02 14:20 | disposition home health service (06) | DRG 710 ==
LOC: 3BNU 08:00 → EMEROOARM 08:00 → SUATTDRO 11:26 → 3BNU 12:16 → SUATTDRO 05-30 13:52
PROVIDERS: ADMIT Internal Medicine; ATTEND Internal Medicine